=== PATIENT | male | born 1945 | race Caucasian/White ===

== ENCOUNTER → 2018-10-05 | Emergency (ER) | payer MEDICARE ==
[~2018-10-05] VITALS: Ht 170.2 cm; Wt 72.6 kg
[~2018-10-05] MED LIST: AMLODIPINE BESY10 MG PO; ENALAPRIL MALEA10 MG PO
--- NOTE | 2018-10-07 19:12 | EKG ---
[facility] [address] [facility] [place], [place] [address] Signed Sinus rhythm with 1st degree AV block Septal infarct (cited on or before 27-OCT-2016) Abnormal ECG When compared with ECG of 27-OCT-2016 15:29, [place] interval has increased Confirmed by VIRGINIA SHELTON MD ([id number]) on 10/07/2018 7:11:42 PM Electronically Signed By: VIRGINIA SHELTON MD 10/07/181911 PATIENT NAME: ARNALDO STALEY Electrocardiogram DATE OF : 45 PHYSICIAN: VIRGINIA SHELTON MD REPORT #: [id number] REPORT IS CONFIDENTIAL AND NOT TO BE RELEASED WITHOUT AUTHORIZATION
== END ==
LOC: ED 10:29
DX: I66.9 Occlusion and stenosis of unspecified cerebral artery (principal); I10 Essential (primary) hypertension; Z79.899 Other long term (current) drug therapy
CPT/HCPCS: 70450; 70496; 70498; 71045; 80053; 84484; 85025; 85610; 85730; 93005; 93010; 99285-25; J1644; Q3014

== ENCOUNTER 2022-11-23 10:39 | Emergency (ER) | payer MEDICARE ==
[~2022-11-23] VITALS: Ht 170.2 cm; Wt 73.1 kg
--- OUTSIDE RECORDS SUMMARY | ~2022-11-23 | XMS | Continuity of Care Document ---
Demographics + + + | Address | [facility] [address] | | | [place] [address] | + + + | Preferred Language | Unknown | + + + | Marital Status | Never | + + + | Jehovah'S Witness Affiliation | Unknown | + + + | Race | White | + + + | Ethnic Group | Not or | + + + Author + + + | Author | [facility] | + + + | Organization | [facility] | + + + | Address | [address] | | | [place] [address] | + + + | Phone | | + + + Care Team Providers + + + + | Care Cut File Clerk Name | Role | Phone | + + + + Unavailable | Unavailable | + + + + Unavailable | Unavailable | + + + + Unavailable | Unavailable | + + + + Unavailable | Unavailable | + + + + Allergies and Intolerances + + + + + + | date | description | facility | reaction | severity | + + + + + + | (no date) | No Known | [facility] | (no reaction) | (no severity) | | | Allergies | | | | + + + + + + Encounters No information. Functional Status No information. Immunizations No information. Medications + + + + | date | description | facility | + + + + | 2022-11-01 00:00 | POTASSIUM CHLORIDE | [facility] | + + + + | 2022-11-01 00:00 | AMLODIPINE BESYLATE | [facility] | + + + + | 2022-11-02 00:00 | AMLODIPINE BESYLATE | [facility] | + + + + | 2022-11-01 00:00 | ENALAPRIL MALEATE | [facility] | + + + + | 2022-11-02 00:00 | ENALAPRIL MALEATE | [facility] | + + + + | 2022-11-01 00:00 | TAMSULOSIN HCL | [facility] | + + + + Problems + + + + | date | description | facility | + + + + | 2016-10-27 00:00 | Palpitations | [facility] | + + + + | 2016-10-27 00:00 | Palpitations | [facility] | + + + + | 2016-10-27 00:00 | Weakness | [facility] | + + + + | 2016-10-27 00:00 | Weakness | [facility] | + + + + | 2016-10-27 00:00 | Fatigue | [facility] | + + + + | 2016-10-27 00:00 | Fatigue | [facility] | + + + + | 2018-10-05 00:00 | 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[facility] | | | thrombosis | | + + + + | 2018-10-05 00:00 | 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[facility] | | | thrombosis | | + + + + | 2022-06-27 18:35 | HYDROCELE, UNSPECIFIED | [facility] | + + + + | 2022-06-27 18:35 | CYST OF EPIDIDYMIS | [facility] | + + + + | 2022-06-27 18:35 | 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 | | + + + + | 2022-10-31 00:00 | Bladder outlet obstruction | [facility] | | | | | + + + + | 2022-10-31 00:00 | Bladder outlet obstruction | [facility] | | | | | + + + + | 2022-10-31 13:05 | HYPOKALEMIA | [facility] | + + + + | 2022-10-31 13:05 | UNSPECIFIED HYDRONEPHROSIS | [facility] | | | | | + + + + | 2022-10-31 13:05 | OTHER OBSTRUCTIVE AND | [facility] | | | REFLUX UROPATHY | | + + + + | 2022-10-31 13:05 | ACUTE KIDNEY FAILURE, | [facility] | | | UNSPECIFIED | | + + + + | 2022-10-31 13:05 | BENIGN PROSTATIC | [facility] | | | 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 | | + + + + | 2022-10-31 13:05 | TOBACCO USE | [facility] | + + + + | 2022-11-02 00:00 | Problem with [place] | [facility] | | | catheter | | + + + + | 2022-11-02 10:23 | NICOTINE DEPENDENCE, | [facility] | | | UNSPECIFIED, UNCOMPLICATED | | + + + + | 2022-11-02 10:23 | Essential (primary) | [facility] | | | hypertension | | + + + + | 2022-11-02 10:23 | OBSTRUCTIVE AND REFLUX | [facility] | | | UROPATHY, UNSPECIFIED | | + + + + | 2022-11-02 10:23 | ENCOUNTER FOR FITTING AND | [facility] | | | ADJUSTMENT OF URINARY | | | | DEVICE | | + + + + | 2022-11-02 10:23 | 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 Results/Labs +--------+--------+ +---------+--------+---------+ | test | date | facility | value | unit | notes | +--------+--------+ +---------+--------+---------+ + + | Result panel 1 | + + + + + + + + + | | 2022-10-31 | [facility] | YELLOW | (missing) | (missing) | | (unavailable | [facility] | | | | + + + + + + + + + | Result panel 2 | + + + + + +---------+ + + | | 2022-10-31 | [facility] | CLEAR | (missing) | (missing) | | (unavailable | [facility] Hospital | | | | + + + +---------+ + + + + | Result panel 3 | + + + + + + + + + | | 2022-10-31 | [facility] | NEGATIVE | (missing) | (missing) | | (unavailable | [facility] Hospital | | | | + + + + + + + + + | Result panel 4 | + + + + + + + + + | | 2022-10-31 | [facility] | NEGATIVE | (missing) | (missing) | | (unavailable | [facility] Hospital | | | | + + + + + + + + + | Result panel 5 | + + + + + + + + + | | 2022-10-31 | [facility] | NEGATIVE | (missing) | (missing) | | (unavailable | [facility] Hospital | | | | + + + + + + + + + | Result panel 6 | + + + + + +---------+ + + | | 2022-10-31 | [facility] | 1.025 | (missing) | (missing) | | (unavailable | [facility] Hospital | | | | + + + +---------+ + + + + | Result panel 7 | + + + + + + + + + | | 2022-10-31 | [facility] | MODERATE | (missing) | (missing) | | (unavailable | [facility] Hospital | | | | + + + + + + + + + | Result panel 8 | + + + + + +-------+ + + | | 2022-10-31 | [facility] | 5.5 | (missing) | (missing) | | (unavailable | [facility] Hospital | | | | + + + +-------+ + + + + | Result panel 9 | + + + + + + + + + | | 2022-10-31 | [facility] | NEGATIVE | (missing) | (missing) | | (unavailable | [facility] | | | | + + + + + + + + + | Result panel 10 | + + + + + + + + + | | 2022-10-31 | [facility] | NORMAL | (missing) | (missing) | | (unavailable | [facility] | | Hospital | | | | + + + + + + + + + | Result panel 11 | + + + + + + + + + | | 2022-10-31 | [facility] | NEGATIVE | (missing) | (missing) | | (unavailable | [facility] Hospital | | | | + + + + + + + + + | Result panel 12 | + + + + + + + + + | | 2022-10-31 | [facility] | NEGATIVE | (missing) | (missing) | | (unavailable | [facility] Hospital | | | | + + + + + + + + + | Result panel 13 | + + + + + +-------+ + + | | 2022-10-31 | [facility] | 4-6 | (missing) | (missing) | | (unavailable | [facility] Hospital | | | | + + + +-------+ + + + + | Result panel 14 | + + + + + +-------+ + + | | 2022-10-31 | [facility] | 4-6 | (missing) | (missing) | | (unavailable | [facility] Hospital | | | | + + + +-------+ + + + + | Result panel 15 | + + + + + + + + + | | 2022-10-31 | [facility] | NONE SEEN | (missing) | (missing) | | (unavailable | [facility] Hospital | | | | + + + + + + + + + | Result panel 16 | + + + + + + + + + | | 2022-10-31 | [facility] | NONE SEEN | (missing) | (missing) | | (unavailable | [facility] Hospital | | | | + + + + + + + + + | Result panel 17 | + + + + + +--------+ + + | | 2022-10-31 | [facility] | RARE | (missing) | (missing) | | (unavailable | [facility] Hospital | | | | + + + +--------+ + + + + | Result panel 18 | + + + + + + + + + | | 2022-10-31 | [facility] | HYALINE 2+ | (missing) | (missing) | | (unavailable | [facility] Hospital | | | | + + + + + + + + + | Result panel 19 | + + + + + +------+ + + | | 2022-10-31 | [facility] | No | (missing) | (missing) | | (unavailable | [facility] Hospital | | | | + + + +------+ + + + + | Result panel 20 | + + + + + +-------+ + + | | 2022-11-01 | [facility] | 6.9 | (missing) | (missing) | | (unavailable | [facility]14[facility] Hospital | | | | + + + +-------+ + + + + | Result panel 21 | + + + + + +--------+ + + | | 2022-11-01 | [facility] | 68.5 | (missing) | (missing) | | (unavailable | [facility]14[facility] Hospital | | | | + + + +--------+ + + + + | Result panel 22 | + + + + + +-------+---------+ + | | 2022-11-01 | [facility] | 4.3 | mg/dL | (missing) | | (unavailable | [facility]14[facility] Hospital | | | | + + + +-------+---------+ + + + | Result panel 23 | + + + + + +-------+---------+ + | | 2022-11-01 | [facility] | 2.4 | mg/dL | (missing) | | (unavailable | [facility]14[facility] Hospital | | | | + + + +-------+---------+ + + + | Result panel 24 | + + + + + +-------+ + + | | 2022-11-01 | [facility] | 5.3 | (missing) | (missing) | | (unavailable | [facility]14[facility] Hospital | | | | + + + +-------+ + + + + | Result panel 25 | + + + + + +-------+ + + | | 2022-11-01 | [facility] | 2.7 | (missing) | (missing) | | (unavailable | [facility]14[facility] Hospital | | | | + + + +-------+ + + + + | Result panel 26 | + + + + + +-------+ + + | | 2022-11-01 | [facility] | 2.6 | (missing) | (missing) | | (unavailable | [facility]14[facility] Hospital | | | | + + + +-------+ + + + + | Result panel 27 | + + + + + +--------+ + + | | 2022-11-01 | [facility] | 1.04 | (missing) | (missing) | | (unavailable | [facility]14[facility] Hospital | | | | + + + +--------+ + + + + | Result panel 28 | + + + + + +-------+ + + | | 2022-11-01 | [facility] | 0.9 | (missing) | (missing) | | (unavailable | [facility]14[facility] Hospital | | | | + + + +-------+ + + + + | Result panel 29 | + + + + + +------+ + + | | 2022-11-01 | [facility] | 15 | (missing) | (missing) | | (unavailable | [facility]14:07 [facility] Hospital | | | | + + + +------+ + + + + | Result panel 30 | + + + + + +------+ + + | | 2022-11-01 | [facility] | 16 | (missing) | (missing) | | (unavailable | [facility]14:07 [facility] Hospital | | | | + + + +------+ + + + + | Result panel 31 | + + + + + +------+ + + | | 2022-11-01 | [facility] | 68 | (missing) | (missing) | | (unavailable | [facility]14:07 [facility] Hospital | | | | + + + +------+ + + + + | Result panel 32 | + + + + + +--------+ + + | | 2022-11-01 | [facility] | 15.8 | (missing) | (missing) | | (unavailable | [facility]14[facility]07 [facility] Hospital | | | | + + + +--------+ + + + + | Result panel 33 | + + + + + +-------+ + + | | 2022-11-01 | [facility] | 8.6 | (missing) | (missing) | | (unavailable | [facility]14[facility] | | | | + + + +-------+ + + + + | Result panel 34 | + + + + + +-------+ + + | | 2022-11-01 | [facility] | 6.5 | (missing) | (missing) | | (unavailable | [facility]14[facility] Hospital | | | | + + + +-------+ + + + + | Result panel 35 | + + + + + +-------+ + + | | 2022-11-01 | [facility] | 0.6 | (missing) | (missing) | | (unavailable | [facility]14[facility] Hospital | | | | + + + +-------+ + + + + | Result panel 36 | + + + + + +------+---------+ + | | 2022-11-01 | [facility] | 99 | mg/dL | (missing) | | (unavailable | [facility]14:07 [facility] | | | | + + + +------+---------+ + + + | Result panel 37 | + + + + + +------+---------+ + | | 2022-11-01 | [facility] | 76 | mg/dL | (missing) | | (unavailable | [facility]14:07 [facility] Hospital | | | | + + + +------+---------+ + + + | Result panel 38 | + + + + + +--------+---------+ + | | 2022-11-01 | [facility] | 2.82 | mg/dL | (missing) | | (unavailable | [facility]14[facility]07 [facility] | | | | + + + +--------+---------+ + + + | Result panel 39 | + + + + + +------+ + + | | 2022-11-01 | [facility] | 22 | (missing) | (missing) | | (unavailable | [facility]14[facility]07 [facility] | | | | + + + +------+ + + + + | Result panel 40 | + + + + + +---------+ + + | | 2022-11-01 | [facility] | 26.95 | (missing) | (missing) | | (unavailable | [facility]14[facility]07 [facility] | | | | + + + +---------+ + + + + | Result panel 41 | + + + + + +--------+ + + | | 2022-11-01 | [facility] | 3.77 | (missing) | (missing) | | (unavailable | [facility]14[facility] | | | | + + + +--------+ + + + + | Result panel 42 | + + + + + +-------+ + + | | 2022-11-01 | [facility] | 133 | (missing) | (missing) | | (unavailable | [facility]14[facility]07 [facility] | | | | + + + +-------+ + + + + | Result panel 43 | + + + + + +-------+ + + | | 2022-11-01 | [facility] | 2.9 | (missing) | (missing) | | (unavailable | [facility]14[facility]07 [facility] | | | | + + + +-------+ + + + + | Result panel 44 | + + + + + +------+ + + | | 2022-11-01 | [facility] | 99 | (missing) | (missing) | | (unavailable | [facility]14[facility]07 [facility] | | | | + + + +------+ + + + + | Result panel 45 | + + + + + +------+ + + | | 2022-11-01 | [facility] | 25 | (missing) | (missing) | | (unavailable | [facility]14[facility]07 [facility] Hospital | | | | + + + +------+ + + + + | Result panel 46 | + + + + + +--------+ + + | | 2022-11-01 | [facility] | 11.9 | (missing) | (missing) | | (unavailable | [facility]14[facility] Hospital | | | | + + + +--------+ + + + + | Result panel 47 | + + + + + +-------+---------+ + | | 2022-11-01 | [facility] | 8.0 | mg/dL | (missing) | | (unavailable | [facility]14[facility]07 [facility] | | | | + + + +-------+---------+ + + + | Result panel 48 | + + + + + +-------+---------+ + | | 2022-11-01 | [facility] | 4.3 | mg/dL | (missing) | | (unavailable | [facility]14[facility] | | | | + + + +-------+---------+ + + + | Result panel 49 | + + + + + +-------+---------+ + | | 2022-11-01 | [facility] | 2.4 | mg/dL | (missing) | | (unavailable | [facility]14[facility] Hospital | | | | + + + +-------+---------+ + + + | Result panel 50 | + + + + + +-------+ + + | | 2022-11-01 | [facility] | 5.3 | (missing) | (missing) | | (unavailable | [facility]14[facility] Hospital | | | | + + + +-------+ + + + + | Result panel 51 | + + + + + +-------+ + + | | 2022-11-01 | [facility] | 2.7 | (missing) | (missing) | | (unavailable | [facility]14[facility] | | | | + + + +-------+ + + + + | Result panel 52 | + + + + + +--------+ + + | | 2022-11-01 | [facility] | 12.2 | (missing) | (missing) | | (unavailable | [facility]14[facility] | | | | + + + +--------+ + + + + | Result panel 53 | + + + + + +-------+ + + | | 2022-11-01 | [facility] | 2.6 | (missing) | (missing) | | (unavailable | [facility]14[facility] | | | | + + + +-------+ + + + + | Result panel 54 | + + + + + +--------+ + + | | 2022-11-01 | [facility] | 1.04 | (missing) | (missing) | | (unavailable | [facility]14[facility] | | | | + + + +--------+ + + + + | Result panel 55 | + + + + + +-------+ + + | | 2022-11-01 | [facility] | 0.9 | (missing) | (missing) | | (unavailable | [facility]14[facility] | | | | + + + +-------+ + + + + | Result panel 56 | + + + + + +------+ + + | | 2022-11-01 | [facility] | 15 | (missing) | (missing) | | (unavailable | [facility]14[facility] | | | | + + + +------+ + + + + | Result panel 57 | + + + + + +------+ + + | | 2022-11-01 | [facility] | 16 | (missing) | (missing) | | (unavailable | [facility]14:07 [facility] Hospital | | | | + + + +------+ + + + + | Result panel 58 | + + + + + +------+ + + | | 2022-11-01 | [facility] | 68 | (missing) | (missing) | | (unavailable | [facility]14:07 [facility] | | | | + + + +------+ + + + + | Result panel 59 | + + + + + +--------+ + + | | 2022-11-01 | [facility] | 34.6 | (missing) | (missing) | | (unavailable | [facility]14[facility]07 [facility] | | | | + + + +--------+ + + + + | Result panel 60 | + + + + + +--------+ + + | | 2022-11-01 | [facility] | 91.8 | (missing) | (missing) | | (unavailable | 05[facility]14:07 [facility] Hospital | | | | + + + +--------+ + + + + | Result panel 61 | + + + + + +--------+ + + | | 2022-11-01 | [facility] | 32.3 | (missing) | (missing) | | (unavailable | 05[facility]14:07 [facility] Hospital | | | | + + + +--------+ + + + + | Result panel 62 | + + + + + +--------+ + + | | 2022-11-01 | [facility] | 35.2 | (missing) | (missing) | | (unavailable | 05[facility]14:07 [facility] | | | | + + + +--------+ + + + + | Result panel 63 | + + + + + +-------+ + + | | 2022-11-01 | [facility] | 6.9 | (missing) | (missing) | | (unavailable | 05[facility]14:07 [facility] | | | | + + + +-------+ + + + + | Result panel 64 | + + + + + +--------+ + + | | 2022-11-01 | [facility] | 3.77 | (missing) | (missing) | | (unavailable | 05[facility]14:07 [facility] Hospital | | | | + + + +--------+ + + + + | Result panel 65 | + + + + + +--------+ + + | | 2022-11-01 | [facility] | 12.2 | (missing) | (missing) | | (unavailable | [facility]14[facility]07 [facility] Hospital | | | | + + + +--------+ + + + + | Result panel 66 | + + + + + +--------+ + + | | 2022-11-01 | [facility] | 34.6 | (missing) | (missing) | | (unavailable | [facility]14[facility]07 [facility] | | | | + + + +--------+ + + + + | Result panel 67 | + + + + + +--------+ + + | | 2022-11-01 | [facility] | 91.8 | (missing) | (missing) | | (unavailable | 05[facility]14:07 [facility] | Hospital | | | | + + + +--------+ + + + + | Result panel 68 | + + + + + +--------+ + + | | 2022-11-01 | [facility] | 13.9 | (missing) | (missing) | | (unavailable | 05[facility]14:07 [facility] Hospital | | | | + + + +--------+ + + + + | Result panel 69 | + + + + + +--------+ + + | | 2022-11-01 | [facility] | 32.3 | (missing) | (missing) | | (unavailable | 05[facility]14:07 [facility] | | | | + + + +--------+ + + + + | Result panel 70 | + + + + + +--------+ + + | | 2022-11-01 | [facility] | 35.2 | (missing) | (missing) | | (unavailable | 05[facility]14:07 [facility] Hospital | | | | + + + +--------+ + + + + | Result panel 71 | + + + + + +--------+ + + | | 2022-11-01 | [facility] | 13.9 | (missing) | (missing) | | (unavailable | 05[facility]14:07 [facility] | | | | + + + +--------+ + + + + | Result panel 72 | + + + + + +-------+ + + | | 2022-11-01 | [facility] | 179 | (missing) | (missing) | | (unavailable | 05[facility]14:07 [facility] Hospital | | | | + + + +-------+ + + + + | Result panel 73 | + + + + + +--------+ + + | | 2022-11-01 | [facility] | 68.5 | (missing) | (missing) | | (unavailable | 05[facility]14:07 [facility] | | | | + + + +--------+ + + + + | Result panel 74 | + + + + + +--------+ + + | | 2022-11-01 | [facility] | 15.8 | (missing) | (missing) | | (unavailable | 05[facility]14:07 [facility] Hospital | | | | + + + +--------+ + + + + | Result panel 75 | + + + + + +-------+ + + | | 2022-11-01 | [facility] | 8.6 | (missing) | (missing) | | (unavailable | 05[facility]14:07 [facility] Hospital | | | | + + + +-------+ + + + + | Result panel 76 | + + + + + +-------+ + + | | 2022-11-01 | [facility] | 6.5 | (missing) | (missing) | | (unavailable | 05[facility]14:07 [facility] | | | | + + + +-------+ + + + + | Result panel 77 | + + + + + +-------+ + + | | 2022-11-01 | [facility] | 0.6 | (missing) | (missing) | | (unavailable | :: | [facility] | | | | | ) | | Hospital | | | | + + + +-------+ + + + + | Result panel 78 | + + + + + +------+---------+ + | | 2022-11-01 | [facility] | 99 | mg/dL | (missing) | | (unavailable | 05:14: | [facility] | | Hospital | | | | + + + +------+---------+ + + + | Result panel 79 | + + + + + +-------+ + + | | 2022-11-01 | [facility] | 179 | (missing) | (missing) | | (unavailable | 05[facility]14:07 | [facility] | | Hospital | | | | + + + +-------+ + + + + | Result panel 80 | + + + + + +------+---------+ + | | 2022-11-01 | [facility] | 76 | mg/dL | (missing) | | (unavailable | 05[facility]14:07 | [facility] | | Hospital | | | | + + + +------+---------+ + + + | Result panel 81 | + + + + + +--------+---------+ + | | 2022-11-01 | [facility] | 2.82 | mg/dL | (missing) | | (unavailable | 05[facility]14:07 | [facility] Hospital | | | | + + + +--------+---------+ + + + | Result panel 82 | + + + + + +------+ + + | | 2022-11-01 | [facility] | 22 | (missing) | (missing) | | (unavailable | 05[facility]14:07 [facility] Hospital | | | | + + + +------+ + + + + | Result panel 83 | + + + + + +---------+ + + | | 2022-11-01 | [facility] | 26.95 | (missing) | (missing) | | (unavailable | 05[facility]14:07 [facility] Hospital | | | | + + + +---------+ + + + + | Result panel 84 | + + + + + +-------+ + + | | 2022-11-01 | [facility] | 133 | (missing) | (missing) | | (unavailable | 05[facility]14:07 | [facility] | | Hospital | | | | + + + +-------+ + + + + | Result panel 85 | + + + + + +-------+ + + | | 2022-11-01 | [facility] | 2.9 | (missing) | (missing) | | (unavailable | 05[facility]14:07 [facility] | Hospital | | | | + + + +-------+ + + + + | Result panel 86 | + + + + + +------+ + + | | 2022-11-01 | [facility] | 99 | (missing) | (missing) | | (unavailable | 05[facility]14:07 [facility] Hospital | | | | + + + +------+ + + + + | Result panel 87 | + + + + + +------+ + + | | 2022-11-01 | [facility] | 25 | (missing) | (missing) | | (unavailable | 05[facility]14:07 [facility] | | Hospital | | | | + + + +------+ + + + + | Result panel 88 | + + + + + +--------+ + + | | 2022-11-01 | [facility] | 11.9 | (missing) | (missing) | | (unavailable | 05[facility]14:07 [facility] | Hospital | | | | + + + +--------+ + + + + | Result panel 89 | + + + + + +-------+---------+ + | | 2022-11-01 | [facility] | 8.0 | mg/dL | (missing) | | (unavailable | 05:14:07 | [facility] | | Hospital | | | | + + + +-------+---------+ + + + | Result panel 90 | + + + + + + + + + | | 2022-11-02 | [facility] | YELLOW | (missing) | (missing) | | (unavailable | 11:58:07 | [facility] | | Hospital | | | | + + + + + + + + + | Result panel 91 | + + + + + +---------+ + + | | 2022-11-02 | [facility] | CLEAR | (missing) | (missing) | | (unavailable | 11:58:07 | [facility] | [facility] | ) | | Hospital | | | | + + + +---------+ + + + + | Result panel 92 | + + + + + + + + + | | 2022-11-02 | [facility] | NEGATIVE | (missing) | (missing) | | (unavailable | 11:58:07 | [facility] | | Hospital | | | | + + + + + + + + + | Result panel 93 | + + + + + + + + + | | 2022-11-02 | [facility] | NEGATIVE | (missing) | (missing) | | (unavailable | 11:58:07 | [facility] | | Hospital | | | | + + + + + + + + + | Result panel 94 | + + + + + + + + + | | 2022-11-02 | [facility] | NEGATIVE | (missing) | (missing) | | (unavailable | 11:58:07 | [facility] | | Hospital | | | | + + + + + + + + + | Result panel 95 | + + + + + +---------+ + + | | 2022-11-02 | [facility] | 1.025 | (missing) | (missing) | | (unavailable | 11:58:07 | [facility] | | Hospital | | | | + + + +---------+ + + + + | Result panel 96 | + + + + + +---------+ + + | | 2022-11-02 | [facility] | LARGE | (missing) | (missing) | | (unavailable | 11:58:07 | [facility] | | Hospital | | | | + + + +---------+ + + + + | Result panel 97 | + + + + + +-------+ + + | | 2022-11-02 | [facility] | 5.5 | (missing) | (missing) | | (unavailable | 11:58:07 | [facility] | | Hospital | | | | + + + +-------+ + + + + | Result panel 98 | + + + + + +-------+ + + | | 2022-11-02 | [facility] | 100 | (missing) | (missing) | | (unavailable | 11:58:07 | [facility] ) | | Hospital | | | | + + + +-------+ + + + + | Result panel 99 | + + + + + + + + + | | 2022-11-02 | [facility] | NORMAL | (missing) | (missing) | | (unavailable | 11:58:07 | [facility] ) | | Hospital | | | | + + + + + + + + + | Result panel 100 | + + + + + + + + + | | 2022-11-02 | [facility] | NEGATIVE | (missing) | (missing) | | (unavailable | 11:58:07 | [facility] | | Hospital | | | | + + + + + + + + + | Result panel 101 | + + + + + +---------+ + + | | 2022-11-02 | [facility] | TRACE | (missing) | (missing) | | (unavailable | 11:58:07 | [facility] | | Hospital | | | | + + + +---------+ + + + + | Result panel 102 | + + + + + +---------+ + + | | 2022-11-02 | [facility] | 21-40 | (missing) | (missing) | | (unavailable | 11:58:07 | [facility] | | ) | | Hospital | | | | + + + +---------+ + + + + | Result panel 103 | + + + + + +-------+ + + | | 2022-11-02 | [facility] | 2-3 | (missing) | (missing) | | (unavailable | 11:58:07 | [facility] | ) | | Hospital | | | | + + + +-------+ + + + + | Result panel 104 | + + + + + + + + + | | 2022-11-02 | [facility] | SQUAMOUS 1+ | (missing) | (missing) | | (unavailable | 11:58:07 | [facility] | | Hospital | | | | + + + + + + + + + | Result panel 105 | + + + + + + + + + | | 2022-11-02 | [facility] | NONE SEEN | (missing) | (missing) | | (unavailable | 11:58:07 | [facility] ) | | Hospital | | | | + + + + + + + + + | Result panel 106 | + + + + + +--------+ + + | | 2022-11-02 | [facility] | RARE | (missing) | (missing) | | (unavailable | 11:58:07 | [facility] | | | | ) | | [facility] | | | | + + + +--------+ + + + + | Result panel 107 | + + + + + + + + + | | 2022-11-02 | [facility] | NONE SEEN | (missing) | (missing) | | (unavailable | 11:58:07 | [facility] | | | | | ) | | Hospital | | | | + + + + + + + + + | Result panel 108 | + + + + + +------+ + + | | 2022-11-02 | [facility] | No | (missing) | (missing) | | (unavailable | 11:58:07 | [facility] | | | | | ) | | Hospital | | | | + + + +------+ + + + + | Result panel 109 | + + + + + + + + + | | 2022-11-02 | [facility] | CLEAN CATCH | (missing) | (missing) | | (unavailable | 11:58:07 | [facility] | | | | | ) | | Hospital | | | | + + + + + + + Social History No information. Vital Signs + + + +---------+ | date | measurement | value | units | + + + +---------+ | 2022-10-31 00:00 | BMI | 25.4 | kg/m2 | + + + +---------+ | 2022-10-31 00:00 | height_metric | 170.18 | cm | + + + +---------+ | 2022-10-31 00:00 | height_standard | 67 | in | + + + +---------+ | 2022-10-31 00:00 | weight_metric | 73.6 | kg | + + + +---------+ | 2022-10-31 00:00 | weight_standard | 162.26 | lb | + + + +---------+ | 2022-11-01 00:00 | BP_diastolic | 56 | mmHg | + + + +---------+ | 2022-11-01 00:00 | BP_systolic | 125 | mmHg | + + + +---------+ | 2022-11-01 00:00 | heart_rate | 78 | /min | + + + +---------+ | 2022-11-01 00:00 | o2_saturation | 96 | % | + + + +---------+ | 2022-11-01 00:00 | respiration_rate | 15 | /min | + + + +---------+ | 2022-11-01 00:00 | temperature_metric | 36.5 | C | | | | | | + + + +---------+ | 2022-11-01 00:00 | | 97.7 | F | | | temperature_standar | | | | | d | | | + + + +---------+ | 2022-11-02 00:00 | BMI | 25.9 | kg/m2 | + + + +---------+ | 2022-11-02 00:00 | BP_diastolic | 62 | mmHg | + + + +---------+ | 2022-11-02 00:00 | BP_systolic | 131 | mmHg | + + + +---------+ | 2022-11-02 00:00 | heart_rate | 76 | /min | + + + +---------+ | 2022-11-02 00:00 | height_metric | 170.18 | cm | + + + +---------+ | 2022-11-02 00:00 | height_standard | 67 | in | + + + +---------+ | 2022-11-02 00:00 | o2_saturation | 99 | % | + + + +---------+ | 2022-11-02 00:00 | respiration_rate | 16 | /min | + + + +---------+ | 2022-11-02 00:00 | temperature_metric | 36.67 | C | | | | | | + + + +---------+ | 2022-11-02 00:00 | | 98 | F | | | temperature_standar | | | | | d | | | + + + +---------+ | 2022-11-02 00:00 | weight_metric | 74.9 | kg | + + + +---------+ | 2022-11-02 00:00 | weight_standard | 165.13 | lb | + + + +---------+"
--- OUTSIDE RECORDS SUMMARY | ~2022-11-23 | XMS | Continuity of Care Document ---
Demographics + + + | Address | [facility] [address] | | | [place] [address] | + + + | Preferred Language | Unknown | + + + | Marital Status | Never | + + + | Nondenominational Affiliation | Unknown | + + + | Race | White | + + + | Ethnic Group | Not or | + + + Author + + + | Author | [facility] | + + + | Organization | [facility] | + + + | Address | [address] [facility] | | | [place] [address] | + + + | Phone | | + + + Care Team Providers + + + + | Care [place] Feeder Name | Role | Phone | + [...] | 2022-11-01 00:00 | POTASSIUM CHLORIDE | [facility] | + + + + | 2022-11-01 00:00 | AMLODIPINE BESYLATE | [facility] | + + + + | 2022-11-02 00:00 | AMLODIPINE BESYLATE | [facility] | + + + + | 2022-11-01 00:00 | ENALAPRIL MALEATE | [facility] | + + + + | 2022-11-02 00:00 | ENALAPRIL MALEATE | [facility] | + + + + | 2022-11-01 00:00 | TAMSULOSIN HCL | [facility] | + + + + Problems + + + + | date | description | facility | + + + + | 2016-10-27 00:00 | Palpitations | [facility] | + + + + | 2016-10-27 00:00 | Palpitations | [facility] | + + + + | 2016-10-27 00:00 | Weakness | [facility] | + + + + | 2016-10-27 00:00 | Weakness | [facility] | + + + + | 2016-10-27 00:00 | Fatigue | [facility] | + + + + | 2016-10-27 00:00 | Fatigue | [facility] | + + + + | 2018-10-05 00:00 | 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
[~2022-11-23 10:39] MED LIST changes: +FLOMAX0.4 MG PO; +MULTI VITAMIN1 EACH PO; +POTASSIUM CHLO20 ME1 PO
--- OUTSIDE RECORDS SUMMARY | 2022-11-23 10:47 | XMS ---
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 Amena has no Care Guidelines for this patient. [facility] VISIT COUNT (12 MO.) [address] [facility] TOTAL 3 NOTE: Visits indicate total known visits. ED/C VISIT TRACKING (12 MO.) 11/23/2022 10:39 [facility] [place] TYPE: Emergency COMPLAINT: - BLOOD IN CATHETER BAG 11/02/2022 10:23 [facility] [place] TYPE: Emergency COMPLAINT: - URINE PROBLEM DIAGNOSES: - Encounter for fitting and adjustment of urinary device - Essential (primary) hypertension - Nicotine dependence, unspecified, uncomplicated - Obstructive and reflux uropathy, unspecified - Other fpc (current) drug therapy 10/31/2022 13:04 [facility] [place] TYPE: Emergency COMPLAINT: - GENITALS SWOLLEN/PAINFUL INPATIENT VISIT TRACKING (12 MO.) 10/31/2022 13:05 [facility] [place] TYPE: Observation COMPLAINT: - BLADDER OUTLET OBSTRUCTION DIAGNOSES: - Acute kidney failure, unspecified - Benign prostatic hyperplasia with lower urinary tract symptoms - Hypokalemia - Other obstructive and reflux uropathy - Tobacco use - Unspecified hydronephrosis [email or web address]
[2022-11-23 12:47] VITALS: BP 133/76
== END 2022-11-23 13:15 | disposition home or self-care (01) ==
LOC: ED 10:39
DX: R31.9 Hematuria, unspecified (principal); I10 Essential (primary) hypertension; F17.200 Nicotine dependence, unspecified, uncomplicated; Z79.899 Other long term (current) drug therapy
CPT/HCPCS: 81001

== ENCOUNTER 2023-01-07 05:45 | Day surgery (SDC) | payer MEDICARE ==
[2023-01-03 13:44] VITALS: BP 128/78
[~2023-01-07] VITALS: Ht 170.2 cm; Wt 75.0 kg
[2023-01-07] VITALS (8 sets, daily range): BP systolic 110–134; BP diastolic 55–74
[~2023-01-07 05:45] MED LIST changes: +ASPIRIN REGIMEN81 MG PO; +ATORVASTATIN CA20 MG PO
--- NOTE | 2023-01-07 10:04 | NUR ---
01/07/23 1004 Joselyn Mata 0958-PT TO PACU IN SUPINE POSITION. PT RESPONDS TO LIGHT VERBAL STIMULI. BREATHING EASY AND UNLABORED. SPO2 >90% ON ROOM AIR. PT DENIES PAIN AND NAUSEA. 1004-PT REMAINS AWAKE BUT DROWSY. PT DENIES PAIN AND NAUSEA. BREATHING EASY AND UNLAOBRED. SPO2 >95% ON ROOM AIR. HOB ELEVATED PER PT REQUEST.
--- NOTE | 2023-01-07 10:24 | NUR ---
PT TO MED-SURG VIA BED, VISITOR IS HERE WITH HIM. PT IS ALERT AND INTERACTIVE AGREES HE IS COMFORTABLE. BLADDER IRRIGATION RUNNING CLEAR. SCD'S AND PULSE OX IN PLACE FRESH H20 PROVIDED
--- NOTE | 2023-01-07 10:25 | NUR ---
PT IN ROOM 120, ARRIVED FROM DAY SURGERY RECIEVED BY NICOLASA QUINTERO. REPORT RECEIVED FROM NICOLASA ZHENG FROM DAY SURGERY. PT IS ALERT AND ORIENTED UPON ARRIVAL WITH ONE VISITOR IN ROOM. CBI RUNNING. LR RUNNING AT 50 ML/HR VIA PUMP. VSS. PT DENIES PAIN OR DISCOMFORT AT THIS TIME.
[2023-01-07] MEDS ORDERED: TRAMADOL HCL50 MG PO (10:28)
[2023-01-07] MEDS ORDERED: LEVOFLOXACIN500 MG PO (10:29)
--- NOTE | 2023-01-07 11:07 | NUR ---
PHYSICAL ASSESSMENT COMPLETE. PT DENIES PAIN OR NAUSEA AT THIS TIME. RESTING IN BED WITH CALL LIGHT, VISITOR AT BEDSIDE. BED RAILS UP X3, PT INSTRUCTED TO USE CALL LIGHT AND NOT TO ATTEMPT TO GET OUT OF BED. PT ABLE TO WIGGLE FEET BUT NOT TOES, ANESTHESIA CURRENTLY AFFECTING BLE SENSATION. PT PERCEIVES SHARP PAIN AT DERMATOME L5, DULL PAIN BELOW THAT. LUNGS CLEAR, RESP EVEN AND UNLABORED. ERAZO CATHETER INTACT, SECURED TO LLE. CBI INFUSING, ERAZO OUTPUT IS CLEAR. NO REQUESTS AT THIS TIME.
--- NOTE | 2023-01-07 11:48 | NUR ---
PT RESTING IN BED, VSS. PT PERCEIVES SHARP SENTATION AT THE KNEE BILATERALLY NOW, DERMATOME L5. PT ABLE TO WIGGLE 1ST TOE OF THE LEFT FOOT NOW. PT DENIES PAIN OR NAUSEA. CBI RATE DECREASED. ERAZO OUTPUT IS CLEAR AT THIS TIME. ERAZO DRAINAGE BAG EMPTIED. NO REQUESTS AT THIS TIME.
--- NOTE | 2023-01-07 11:58 | NUR ---
SPOKE TO PATIENT ABOUT THE DISCHARGE PLAN.PATIENT PLANS TO GO HOME TOMORROW WHEN MEDICALLY STABLE.PATIENT HAS FRIENDS AND FAMILY THAT ARE AVAIABLE TO HELP.PATIENT'S DEMOGRAPHICS ARE CORRECT IN THE MEDICAL RECORD. PATIENT CAN AFFORD FOOD AND HOUSING. PATIENT CAN DO HIS OWN ADLS. PATIENT STILL DRIVES NEEDED. PATIENT DOES NOT HAVE ANY DME AT HOME. PATIENT HAS NO CASE MANAGEMENT NEEDS AT THIS TIME. THE UNIT CLERK WILL MONITOR THE PATIENTS NEEDS.
--- NOTE | 2023-01-07 12:54 | NUR ---
PT SITTING UP IN BED, ALERT AND AWAKE. DENIES PAIN OR NAUSEA. PT ABLE TO MOVED ALL TOES ON LEFT FOOT AND 1ST TOE ON RIGHT FOOT. IV INFUSING LR, DRESSING INTACT, NO REDNESS OR SWELLING NOTED. ERAZO DRAINING CLEAR YELLOW URINE, SMALL CLOT NOTED IN DRAINAGE TUBING. CBI INFUSING VIA GRAVITY. MEAL DELIVERED TO PT ROOM. PT EATING. CALL LIGHT IN REACH, NO REQUESTS AT THIS TIME.
--- NOTE | 2023-01-07 13:50 | NUR ---
PT SITTING UP IN BED WATCHING TV. MEAL COMPLETED. DENIES PAIN OR NAUSEA. IV CONTINUES TO INFUSE LR, SITE INTACT, NO REDNESS OR SWELLING NOTED. PT ORIENTED TO TIME AND LIMITATIONS AFTER SURGERY. CLEAR YELLOW URINE DRAINING FROM ERAZO, SMALL AMOUNT OF BLOOD NOTED IN TUBING. FRESH ICE WATER PROVIDED. PT ENCOURAGED TO USE CALL LIGHT, CALL LIGHT AND BELONGINGS IN REACH. BED RAILS UP X4.
--- NOTE | 2023-01-07 15:09 | NUR ---
PT SITTING UP IN BED, VSS. PT ABLE TO WIGGLE LEFT AND RIGHT TOES, ABLE TO LIFT EACH LEG. STRENGTH EQUAL BILATERALLY. SENSATION INTACT, BILATERALLY. IV INTACT, NO REDNESS OR SWELL, LR INFUSING. PT ORIENTED TO TIME AND SITUATION. PT DOES NOT REMEMBER COMING INTO TO SURGERY. PT REQUIRES SOME EXPLANATION AND CONVENCING THAT SURGERY TOOK PLACE. PT CONCERNED ABOUT HIS ANIMALS AND STATES HE NEEDS TO GO HOME. PT DOES NOT RECOGNIZE HIS OWN LIMITATIONS AT THIS TIME. PT PROVIDED CONTACT INFORMATION FOR ROBE, HIS FRIEND WHO IS PROVIDING HIM TRANSPORTATION. CALLED ROBE, DISCUSSED PT'S CONFUSION. ROBE STATES THAT THE PT GETS CONFUSED LIKE THIS WHEN HIS ROUTINE CHANGES OR WITH BIG EVENTS. ROBE STATES SHE WILL CALL THE PT'S CELL PHONE TO SPEAK WITH HIM AND REINFORCE ORIENTATION. ROBE REPORTS THAT THE PATIENT WANTS TO COME HOME AND ALSO WANTS TO SMOKE. ROBE REPORTS HAS A HISTORY OF "FORGETFULNESS". FOR EXAMPLE HE DROVE UP TO [place] BUT THEN COULDNT REMEMBER HOW HE GOT THERE. ALSO PATIENT HAS A HISTORY OF LEAVING [place]. ROBE STATED SHE HAS CONCERNS ABOUT HIM DISCHARGING HOMES HE LIVES ALONE. ROBE STATES SHE WILL BE INTO VISIT HIM YAIR AGUDELO [id number]. CATHETER DRAINING CLEAR, YELLOW URINE WITH SMALL AMOUNTS OF BLOOD IN THE TUBING
--- NOTE | 2023-01-07 15:46 | NUR ---
PT RESTING WITH EYES CLOSED IN BED, ROUSES TO NOISE. DENIES PAIN OR DISCOMFORT AT THIS TIME. PT STATES HE SPOKE WITH ROBE. STATES, "I GUESS I AM STAYING HERE." OFFERED NICOTINE PATCH IN PLACE OF SMOKING, PT DECLINES AT THIS TIME. NO REQUESTS AT THIS TIME. PT CLOSED TO NURSES STATION, CURRTAIN OPEN, BED RAILS UP X4. PT INSTRUCTED TO USE CALL LIGHT.
--- NOTE | 2023-01-07 16:01 | NUR ---
MED REC COMPLETE
--- NOTE | 2023-01-07 16:33 | NUR ---
LR INFUSION COMPLETE, NEW BAG HUNG, SEE eMAR. IV INTACT, NO PAIN, REDNESS OR SWELLING NOTED AT SITE. PT IS UP IN BED, PLEASANT AND WATCHING TV. ERAZO CONTINUES TO DRAIN CLEAR YELLOW URINE WITH SMALL AMOUNTS OF BLOOD IN THE TUBING. CALL LIGHT IN PLACE, NO REQUESTS AT THIS TIME.
--- NOTE | 2023-01-07 17:18 | NUR ---
1000 MLS OF PINK URINE REMOVED FROM ERAZO BAG. 1000 MLS OF NS IRRIGATION FLUID IN. NEW BAG STARTED. LR INFUSING VIA IV IN THE RFA, DRESSING INTACT, NO REDNESS OR SWELLING NOTED, NO TENDERNESS TO THE TOUCH. DINNER DELIVERED TO PT, PT SITS UP IN BED, EATS AND WATCHES TV, CALL LIGHT IN REACH, NO REQUESTS AT THIS TIME.
--- NOTE | 2023-01-07 18:55 | NUR ---
PT RESTS IN BED, NO FURTHER EPISODES OF CONFUSION OR REQUESTS TO GO HOME. PT IS PLEASENT. TOLERATING DIET WELL. IV SITE C/D/I, NO SWELLING OR REDNESS. CBI CONTINUES TO FLOW AT A SLOW RATE. ERAZO DRAINS PINK URINE. PT DENIES PAIN OR DISCOMFORT. BED IN LOW POSITION, RAILS UP X4, CALL LIGHT AND BELONGINGS IN REACH.
--- NOTE | 2023-01-07 19:09 | NUR ---
VERBAL REPORT PROVIDED TO NICOLASA ERAZO. QUESTIONS RICHELLE.
--- NOTE | 2023-01-07 19:23 | NUR ---
RECEIVED REPORT FROM DAY SHIFT RN. PATIENT IS RESTING IN BED. MD AT BEDSIDE. NO NEEDS NOTED. VERBAL ORDER FROM MD FOR STOOL SOFTENER, VERIFIED WITH REPEAT BACK METHOD
--- NOTE | 2023-01-07 20:32 | NUR ---
PATIENT REPOSITIONED IN BED. CATH CARE COMPLETED. NEW GOWN PLACED ON PATIENT. PATIENTS VITALS TAKEN AND RECORDED. CBA CLAMPED AT 2019. PATIENTS ERAZO EMPTIED. PATIENTS INTAKE AND OUTPUT RECORDED. PATIENT HAS SCDS IN PLACE ON BILAT LOW EXT. PATIENT DENIES ANY PAIN OR NAUSEA. PM MEDS GIVEN PER ORDER. IV INFUSING PER ORDER. DISCUSSED PLAN OF CARE WITH PATIENT AND ALL QUESTIONS ANSWERED. PATIENT PROVIDED WARM BLANKET AND FRESH WATER. PATIENT IS ON RA AND CPOX IS IN USE. PATIENT DENIES ANY NEEDS. CALL LIGHT IN REACH. BED ALARM ON FOR PATIENT SAFETY.
--- NOTE | 2023-01-07 21:46 | NUR ---
PATIENT CAN BE SEEN FROM RN STATION ATTEMPTING TO GET THIS RNS ATTENTION. PATIENT IS REQUESTING ERAZO BE TAKEN OUT. EDUCATED PATIENT ON PLAN OF CARE. PATIENT APPEARS FRUSTRATED. PATIENT REASSURED BY THIS RN THAT HE IS SAFE AND THE DRS ORDERS ARE BEING FOLLOWED. ALL QUESTIONS ANSWERED ABOUT PATIENTS PLAB OF CARE. PATIENT APPEARS CALM. PATIENT REQUESTING LIGHTS OFF. ALL LIGHTS TURNED OFF PER PATIENT REQUEST. PATIENTS FOLWY REMAINS CLAMPED. PATIENTS BED ALARM ON FOR SAFETY. CALL LIGHT IN REACH. IV INFUSING PER ORDER.
--- NOTE | 2023-01-07 22:13 | NUR ---
PATIENT IS RESTING IN BED WITH EYES CLOSED, CPOX READINGS ARE WNL. CALL LIGHT IN REACH. BED ALARM ON FOR SAFETY.
--- NOTE | 2023-01-07 22:51 | NUR ---
THIS RN IN TO CHECK ON PATIENT. PATIENT STATED "I NEED TO SHULTZ THIS CHECK AND I CANT FIND IT". THIS RN ATTEMPTED TO ORIENT PATIENT. PATIENT DENIES ANY NEEDS. CALL LIGHT IN REACH. BED ALARM ON FOR SAFETY.
--- NOTE | 2023-01-08 00:09 | NUR ---
PATIENT IS RESTING IN BED WITH EYES CLOSED, CPOX READINGS ARE WNL. CALL LIGHT IN REACH. BED ALARM ON FOR SAFETY.
[2023-01-08 01:28] VITALS: BP 124/57
--- NOTE | 2023-01-08 02:05 | NUR ---
PATIENTS VITALS TAKEN AND RECORDED. ERAZO EMPTIED. CBI REMAINS CLAMPED. INTAKE AND OUTPUT RECORDED. PATIENT IS REQUESTING TO LEAVE. PATIENT EDUCATED THAT IT IS THE MIDDLE OF THE NIGHT. PATIENT STATED "OKAY". PATIENT DENIES ANY FURTHER NEEDS. CALL LIGHT IN REACH. BED ALARM ON FOR SAFETY. IV INFUSING PER ORDER.
--- NOTE | 2023-01-08 03:55 | NUR ---
PATIENT IS RESTING IN BED WITH EYES CLOSED, CPOX READINGS ARE WNL. CBI REMAINS CLAMPED. IV INFUSING PER ORDER. CALL LIGHT IN REACH. BED ALARM ON FOR SAFETY.
--- NOTE | 2023-01-08 04:26 | NUR ---
PATIENTS BED ALARM ALERTED STAFF. PATIENT TRYING TO CLIMB OUT OF BED. ASSISTED PATIENT TO CLIMB BACK IN BED. PATIENT IS CONFUSED AND DISORIENTED. PATIENT STATED "I HAVE TO GET TO [facility]" THIS RN ATTEMPTED TO ORIENT PATIENT. EDUCATED PATIENT ON PLAN OF CARE AND DISCHARGE TIME. PATIENT EDUCATED THAT IT IS 4 AM. PATIENT THEN STATED "THIS PLACE IS JAIL". REASSURED PATIENT THAT HE IS SAFE AND HE WILL BE GOING HOME TODAY. PATIENT APPEARED TO CALM DOWN. PATIENT DEMANDED HIS CELLPHONE. PATIENT THEN MADE A PERSONAL CALL. THIS RN LEFT ROOM. PATIENT IS RESTING IN BED. IV INFUSING PER ORDER. BED ALARM ON FOR SAFETY. CPOX AND SCDS DC'D PATIENT WAS FRUSTRATED WITH ALL THE LINE AND TUBES.
[2023-01-08 05:27] VITALS: BP 125/68
--- NOTE | 2023-01-08 05:28 | NUR ---
LAB IN ROOM. VITALS TAKEN AND RECORDED. ERAZO EMPTIED. ERAZO DRAINING YELLOW URINE. INTAKE AND OUTPUT RECORDED. IV INFUSING PER ORDER. PATIENT DENIES ANY NEEDS. PATIENT STATED "WHEN DO I GET OUT OF HERE". UPDATED PATIENT ON PLAN OF CARE AND ALL QUESTIONS ANSWERED. NO FURTHER NEEDS NOTED. CALL LIGHT IN REACH. BED ALARM ON FOR SAFETY.
[2023-01-08 05:41] LABS: ANION GAP 10.8 (7-21); BUN/CREATININE RATIO 13.82 (6.0-28.6); CALCIUM 8.8 mg/dL (8.5-10.1); CREATININE, SERUM 0.94 mg/dL (0.70-1.30); POTASSIUM 3.8 mmol/L (3.5-5.1)
--- NOTE | 2023-01-08 06:16 | NUR ---
PATIENT IS RESTING IN BED WITH EYES CLSOED, RR 16. CALL LIGHT IN REACH. BED ALARM ON FOR SAFETY. IV INFUSING PER ORDER.
--- NOTE | 2023-01-08 07:17 | NUR ---
RECEIVED REPORT FROM SERVICE CENTER SPECIALIST RN. ROUNDED ON PATIENT. PT IS SLEEPING IN BED WITH EYES CLOSED. RESPIRATIONS ARE EVEN AND REGULAR. CALL LIGHT WITHIN REACH AND BED ALARM ON.
--- NOTE | 2023-01-08 07:54 | NUR ---
RECEIVED REPORT FROM TO [facility]. ASSUMING CARE OF PT.
--- NOTE | 2023-01-08 08:15 | NUR ---
HANDOFF REPORT RECEIVED FROM NICOLASA BARRERA.
[2023-01-08 08:25] VITALS: BP 147/70
--- NOTE | 2023-01-08 09:55 | NUR ---
PT IN BED WORKING ON BREAKFAST. EXPRESSED STRONG DESIRE TO GO HOME. GAVE ENCOURAGEMENT. PT CONSENTED TO PRAYER. PRAYED FOR CONTINUED HEALING AND ABIDING PEACE.
--- NOTE | 2023-01-09 18:05 | OR ---
[facility] [address] [place], [place] [address] Signed DATE OF OPERATION: 01/07/2023 SURGEON: Lincoln Smith MD PREOPERATIVE DIAGNOSES: 1. Urinary retention. 2. 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 POSTOPERATIVE DIAGNOSES: 1. Urinary retention. 2. 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 PROCEDURES: 1. Transurethral resection of prostate. 2. Urethral dilation using [place] sounds from 18-Burkinan to 28-Burkinan. ANESTHESIA: Spinal. ESTIMATED BLOOD LOSS: 100 mL. COMPLICATIONS: None. SPECIMENS: Prostate chips sent to the lab for pathologic evaluation. DRAINS: A 22-Burkinan three-way Hoover catheter, connected to continuous bladder irrigation. INDICATIONS FOR PROCEDURE: Mr. Staley is a very pleasant 77-year-old gentleman with a history of longstanding trilobar BPH with LUTS, who more recently began to experience bouts of urinary retention. Since that time, he has been managing his urinary retention with a chronic indwelling Hoover catheter. He underwent diagnostic cystoscopy, which did confirm the presence of an actively obstructing trilobar prostate. I explained to him that his best chance of being able to void on his own is removing that obstruction to make it easier for his bladder muscle to push urine out of his bladder. After discussion of the risks and benefits of the procedure, which included urinary incontinence and gross hematuria, Electronically Signed By: LINCOLN SMITH MD 01/09/23 [id number] PATIENT NAME: ARNALDO STALEY OPERATIVE REPORT DATE OF : 45 REPORT #: [id number] PHYSICIAN: LINCOLN SMITH MD PCP: COLE RPADO MD REPORT IS CONFIDENTIAL AND NOT TO BE RELEASED WITHOUT AUTHORIZATION [facility] [address] [place], [place] [address] Signed the patient has elected to proceed. OPERATIVE FINDINGS: 1. Digital rectal examination reveals a 65 g gland that is soft, smooth, and symmetric with no focal nodules. 2. The patient did have a significant median lobe on ureteroscopy, which had already been confirmed on prior cystoscopy. The very large median lobe was resected 1st followed by the left and then right lateral lobes of the prostate. The resection was performed down to the level of verumontanum as per protocol. Prior to resection, I evaluated both ureteral orifices and they were noted to be in their normal anatomic location. This was confirmed at the end of the procedure as well. At the end of the procedure, a 22-Burkinan three-way Hoover catheter was inserted into the patient's bladder over a Sensor wire. The catheter was then manually irrigated and the balloon was filled with 30 mL of water, this was then connected to continuous bladder irrigation. DESCRIPTION OF PROCEDURE: After informed consent was obtained, the patient was taken back to the operating room. [facility] table, where spinal anesthesia was induced. He was placed in the dorsal lithotomy position and his genitalia were prepped and draped in a standard sterile fashion. The patient's fossa navicularis was dilated from 18-Burkinan to 28-Burkinan using Lynch[place] sounds without difficulty. Inspection of the urethral meatus also did reveal early signs of urethral erosion due to the presence of a chronic indwelling catheter. After dilation of the fossa navicularis, 60 mL of sterile loop was then instilled in his urethra, followed by a 26-Burkinan sheath that was inserted using a visual obturator. The visual obturator was switched out for the resectoscope with a 23-Burkinan bipolar loop. I then visualized the bilateral ureteral orifices, which were noted to be out of the way of the median lobe. The median lobe was completely resected without issue. I then resected both the left lateral and right lateral lobes of the prostate down to the level of the verumontanum per protocol. I did not perform any resection distal to this due to the increased risk of iatrogenic incontinence. I irrigated the patient's bladder using a Katty syringe multiple times throughout the procedure to extract all of the prostate chips from the patient's bladder. Hemostasis was achieved and maintained using the bipolar loop. He was noted to bleed a little bit more than average, but this is likely due to his chronic daily aspirin use. Once I was satisfied that the entire prostatic urethra was resected, I did again evaluate the bilateral ureteral orifices were which were still present and they were anatomic location. All of the chips were extracted from the patient's bladder and the resectoscope was removed leaving the sheath behind. Through the sheath, I passed a 0.035 Sensor wire into the patient's bladder and removed the sheath, leaving the wire behind. Over the wire, I passed a 22-Burkinan three-way Hoover catheter into the patient's bladder and filled the balloon with 30 mL of sterile water. This catheter was then manually irrigated and a couple of more small prostate chips were removed in this Electronically Signed By: LINCOLN SMITH MD 01/09/23 1805 PATIENT NAME: ARNALDO STALEY OPERATIVE REPORT DATE OF : 45 REPORT #: [id number] PHYSICIAN: LINCOLN SMITH MD PCP: COLE PRADO MD REPORT IS CONFIDENTIAL AND NOT TO BE RELEASED WITHOUT AUTHORIZATION [facility] [address] [place], [place] [address] Signed fashion. The catheter was then connected to continuous bladder irrigation. A digital rectal examination was then performed. Please see above findings. The procedure was then terminated. The patient tolerated the procedure well without any complication. He will now be transferred to the Postanesthesia Care Unit in stable condition. DISPOSITION: I discussed the details of today's procedure with the patient's friend and answered all of her questions. He will be transferred to [facility] later this morning and his CBI will be slowly weaned to off, keeping his urine clear to light pink in color. His regular diet will be restarted and he will be given pain control as needed. The plan is for him to be discharged to home tomorrow morning with Hoover catheter to gravity drainage. He has a voiding trial scheduled for this at 10:00 am. He is going home with Ultram 50 mg one tablet p.o. q.6 hours p.r.n. pain, dispense #20, along with Levaquin 500 mg one tablet p.o. daily for a total of 7 days. MD LUKAS Munoz/JESSE /[id number] Copies: ~ Electronically Signed By: LINCOLN SMITH MD 01/09/23 1805 PATIENT NAME: ARNALDO STALEY OPERATIVE REPORT DATE OF : 45 REPORT #: [id number] PHYSICIAN: LINCOLN SMITH MD PCP: COLE PRADO MD REPORT IS CONFIDENTIAL AND NOT TO BE RELEASED WITHOUT AUTHORIZATION
--- NOTE | 2023-01-10 13:13 | NUR ---
PTS FAMILY CALLED WITH QUESTIONS REGARDING DISCHARGE MEDICATIONS. QUESTIONS ANSWERED. FAMILY STATES THEY WILL CALL DR. SMITH TO CONFIRM MEDICATIONS. NO ADDITIONAL REQUESTS OR COMPLAINTS.
--- NOTE | 2023-01-11 12:38 | PATH ---
[facility] [address] [place], [place] [address] Signed SPECIMEN(S): A PROSTATE CHIPS SPECIMEN SOURCE: A. PROSTATE CHIPS CLINICAL HISTORY: Pre: OAB, BPH with LUTS. Post: TURP FINAL PATHOLOGIC DIAGNOSIS: Prostate chips, TUR: - Benign prostatic glandular tissue with stromal and glandular hyperplasia. - Focal chronic stromal and glandular inflammation. - Urothelium with mild atypia, favor reactive. RUST:[facility] MICROSCOPIC EXAMINATION: Histologic sections of all submitted blocks are examined by light microscopy. These findings, together with the gross examination, support the pathologic diagnosis. Immunostains are performed with appropriate controls on block (A2) and show the following: - CK5: Focal basal staining in the areas of concern. - CK20: Negative for full-thickness urothelial staining in the area of concern. JVR:[facility] GROSS DESCRIPTION: The specimen, labeled and designated "Sarah Staley, " and designated on the requisition "prostate chips," is received in formalin is a 26 g, 9.8 x 8.5 x 2.4 cm aggregate of pink-allen to avendano rubbery soft tissue. Approximately 50% of the specimen is submitted in (A1-A11). FB (under the direct supervision of a pathologist) The Gross Description was prepared using a voice recognition system. The report was reviewed for accuracy; however, sound-alike word errors, addition and/or deletions may occur. If there is any question about this report, please contact Client Services. ADDITIONAL NOTES: Immunohistochemical and/or in situ hybridization studies were performed on this case with the appropriate positive controls that react as expected. This test was developed and its performance PATIENT NAME: ARNALDO STALEY PATHOLOGY DATE OF : 45 REPORT #: [id number] PHYSICIAN: APARNA PATHOLOGY PCP: COLE PRADO MD REPORT IS CONFIDENTIAL AND NOT TO BE RELEASED WITHOUT AUTHORIZATION [facility] [address], [place] [address] Signed characteristics determined by [facility]. It has not been cleared or approved by the U.S. Food and Drug Administration. The FDA has determined that such clearance or approval is not necessary. This test is used for clinical purposes. It should not be regarded as investigational or for research. [facility] is certified under the Clinical Laboratory Improvement Amendments of 1988 (CLIA) as qualified to perform high complexity clinical laboratory testing. This assay has not been validated for specimens that have been decalcified. PERFORMING LABORATORY: Technical component was performed by [facility], [address] [place] [id number] (CLIA# [id number]). Professional interpretation was performed by [facility], [address] [place] [id number] (CLIA#: [id number]). Diagnostician: Anmol Melton MD Pathologist Electronically Signed 01/11/2023 Copies: ~ PATIENT NAME: ARNALDO STALEY PATHOLOGY DATE OF : 45 REPORT #: [id number] PHYSICIAN: APARNA PALACIO PCP: COLE PRADO MD REPORT IS CONFIDENTIAL AND NOT TO BE RELEASED WITHOUT AUTHORIZATION
== END 2023-01-08 09:43 | disposition home or self-care (01) ==
LOC: DS 05:45 → MS 10:15 → DS 01-08 09:43
PROVIDERS: ATTEND Urology
PROC: 0VT08ZZ Resection of Prostate, Via Natural or Artificial Opening Endoscopic (ICD-10-PCS; principal; 2023-01-07 07:30)
DX: N40.1 Benign prostatic hyperplasia with lower urinary tract symptoms (principal); R33.8 Other retention of urine
CPT/HCPCS: 00914; 36415; 80048; 88305; 88341; 88342; C1769; J0690; J0696; J1100; J2001; J2405; J2704; J3010; J7121

== ENCOUNTER 2023-01-29 11:55 | Emergency (ER) | payer MEDICARE ==
[~2023-01-29] VITALS: Ht 170.2 cm; Wt 70.0 kg
--- OUTSIDE RECORDS SUMMARY | ~2023-01-29 | XMS | Continuity of Care Document ---
Demographics + + + | Address | [address] | | | [place] [address] | + + + | Preferred Language | Unknown | + + + | Marital Status | Never | + + + | Episcopal Affiliation | Unknown | + + + | Race | White | + + + | Ethnic Group | Not or | + + + Author + + + | Author | [facility] | + + + | Organization | [facility] | + + + | Address | [address] | | | [place] [address] | + + + | Phone | | + + + Care Team Providers + + + + | Care Child Care Nurse Name | Role | Phone | + [...] | 2022-11-01 00:00 | POTASSIUM CHLORIDE | [facility] | + + + + | 2023-01-08 00:00 | LEVOFLOXACIN | [facility] | + + + + | 2022-11-01 00:00 | AMLODIPINE BESYLATE | [facility] | + + + + | 2022-11-02 00:00 | AMLODIPINE BESYLATE | [facility] | + + + + | 2022-11-23 00:00 | AMLODIPINE BESYLATE | [facility] | + + + + | 2023-01-08 00:00 | AMLODIPINE BESYLATE | [facility] | + + + + | 2023-01-08 00:00 | Aspirin | [facility] | + + + + | 2023-01-08 00:00 | ATORVASTATIN CALCIUM | [facility] | + + + + | 2023-01-08 00:00 | TRAMADOL HCL | [facility] | + + + + | 2022-11-01 00:00 | ENALAPRIL MALEATE | [facility] | + + + + | 2022-11-02 00:00 | ENALAPRIL MALEATE | [facility] | + + + + | 2022-11-23 00:00 | ENALAPRIL MALEATE | [facility] | + + + + | 2023-01-08 00:00 | ENALAPRIL MALEATE | [facility] | + + + + | 2022-11-01 00:00 | TAMSULOSIN HCL | [facility] | + + + + | 2023-01-08 00:00 | TAMSULOSIN HCL | [facility] | + + + + Problems + + + + | date | description | facility | + + + + | 2016-10-27 00:00 | Palpitations | [facility] | + + + + | 2016-10-27 00:00 | Palpitations | [facility] | + + + + | 2016-10-27 00:00 | Palpitations | [facility] | + + + + | 2016-10-27 00:00 | Weakness | [facility] | + + + + | 2016-10-27 00:00 | Weakness | [facility] | + + + + | 2016-10-27 00:00 | Weakness | [facility] | + + + + | 2016-10-27 00:00 | Fatigue | [facility] | + + + + | 2016-10-27 00:00 | Fatigue | [facility] | + + + + | 2016-10-27 00:00 | Fatigue | [facility] | + + + + | 2018-10-05 00:00 | 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[facility] | | | thrombosis | | + + + + | 2018-10-05 00:00 | 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[facility] | | | thrombosis | | + + + + | 2018-10-05 00:00 | 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[facility] | | | thrombosis | | + [...] 2022-10-31 00:00 | Bladder outlet obstruction | [facility] | | | | | + + + + | 2022-10-31 00:00 | Bladder outlet obstruction | [facility] | | | | | + + + + | 2022-10-31 00:00 | Bladder outlet obstruction | [facility] | | | | | + [...] 2022-11-02 00:00 | Problem with Hoover | [facility] | | | catheter | | + + + + | 2022-11-02 00:00 | Problem with Hoover | [facility] | | | catheter | | + [...] + + | 2022-11-02 10:23 | OTHER CREASING AND CUTTING PRESS FEEDER (CURRENT) | [facility] | | [facility] | | + + + + | 2022-11-23 00:00 | Hematuria | [facility] | + + + + | 2022-11-23 00:00 | Hematuria | 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 | | + + + + | 2023-01-07 05:45 | BENIGN PROSTATIC | [facility] | | | HYPERPLASIA WITH LOWER | | + + + + | 2023-01-07 05:45 | OTHER RETENTION OF URINE | [facility] | + + + + | 2023-01-07 05:45 | RETENTION OF URINE, | [facility] | | | UNSPECIFIED | | + + + + | 2023-01-07 07:30 | BENIGN PROSTATIC | [facility] | | | HYPERPLASIA WITH LOWER | | + + + + | 2023-01-07 07:30 | RETENTION OF URINE, | [facility] | | | UNSPECIFIED | | + + + + Procedures + + + + | date | description | facility | + + + + | 2023-01-07 00:00 | Transurethral resection of | [facility] | | | prostate (TURP) | | + + + + | 2023-01-07 00:00 | Transurethral resection of | [facility] | | | prostate (TURP) | | + + + + Results/Labs +--------+--------+ +---------+--------+---------+ | test | date [...] 22 | + + + + + +--------+ + + | | 2022-11-01 | [facility] | 12.2 | (missing) | (missing) | | (unavailable | [facility]14[facility]07 [facility] | | | | + + + +--------+ + + + + | Result panel 23 | + + + + + +--------+ + + | | 2022-11-01 | [facility] | 34.6 | (missing) | (missing) | | (unavailable | [facility]14[facility]07 [facility] | | | | + + + +--------+ + + + + | Result panel 24 | + + + + + +--------+ + + | | 2022-11-01 | [facility] | 91.8 | (missing) | (missing) | | (unavailable | [facility]14:07 [facility] | | | | + + + +--------+ + + + + | Result panel 25 | + + + + + +--------+ + + | | 2022-11-01 | [facility] | 32.3 | (missing) | (missing) | | (unavailable | [facility]14:07 [facility] | | | | + + + +--------+ + + + + | Result panel 26 | + + + + + +--------+ [...] 29 | + + + + + +--------+ + + | | 2022-11-01 | [facility] | 68.5 | (missing) | (missing) | | (unavailable | 05[facility]14:07 [facility] | | | | + + + +--------+ + + + + | Result panel 30 | + + + + + +--------+ + + | | 2022-11-01 | [facility] | 15.8 | (missing) | (missing) | | (unavailable | [facility]14[facility]07 [facility] | | | | + + + +--------+ + + + + | Result panel 31 | + + + + + +-------+ + + | | 2022-11-01 | [facility] | 8.6 | (missing) | (missing) | | (unavailable | [facility]14[facility]07 [facility] | | | | + + + +-------+ + + + + | Result panel 32 | + + + + + +-------+ [...] 34 | + + + + + +------+---------+ + | | 2022-11-01 | [facility] | 99 | mg/dL | (missing) | | (unavailable | [facility]14:07 [facility] | | | | + + + +------+---------+ + + + | Result panel 35 | + + + + + +------+---------+ + | | 2022-11-01 | [facility] | 76 | mg/dL | (missing) | | (unavailable | [facility]14:07 [facility] | | | | + + + +------+---------+ + + + | Result panel 36 | + + + + + +--------+---------+ + | | 2022-11-01 | [facility] | 2.82 | mg/dL | (missing) | | (unavailable | [facility]14[facility]07 [facility] | | | | + + + +--------+---------+ + + + | Result panel 37 | + + + + + +------+ + + | | 2022-11-01 | [facility] | 22 | (missing) | (missing) | | (unavailable | [facility]14:07 [facility] | | | | + + + +------+ + + + + | Result panel 38 | + + + + + +---------+ + + | | 2022-11-01 | [facility] | 26.95 | (missing) | (missing) | | (unavailable | [facility]14:07 [facility] | | | | + + + +---------+ + + + + | Result panel 39 | + + + + + +-------+ + + | | 2022-11-01 | [facility] | 133 | (missing) | (missing) | | (unavailable | 05[facility]14:07 [facility] | | | | + + + +-------+ + + + + | Result panel 40 | + + + + + +-------+ + + | | 2022-11-01 | [facility] | 2.9 | (missing) | (missing) | | (unavailable | [facility]14:07 [facility] | | | | + + + +-------+ + + + + | Result panel 41 | + + + + + +------+ + + | | 2022-11-01 | [facility] | 99 | (missing) | (missing) | | (unavailable | 05[facility]14:07 [facility] | | | | + + + +------+ + + + + | Result panel 42 | + + + + + +------+ + + | | 2022-11-01 | [facility] | 25 | (missing) | (missing) | | (unavailable | [facility]14:07 [facility] | | | | + + + +------+ + + + + | Result panel 43 | + + + + + +--------+ + + | | 2022-11-01 | [facility] | 11.9 | (missing) | (missing) | | (unavailable | [facility]14[facility]07 [facility] | | | | + + + +--------+ + + + + | Result panel 44 | + + + + + +-------+---------+ + | | 2022-11-01 | [facility] | 8.0 | mg/dL | (missing) | | (unavailable | [facility]14:07 [facility] | | | | + + + +-------+---------+ + + + | Result panel 45 | + + + + + +-------+---------+ + | | 2022-11-01 | [facility] | 4.3 | mg/dL | (missing) | | (unavailable | [facility]14:07 [facility] | | | | + + + +-------+---------+ + + + | Result panel 46 | + + + + + +-------+---------+ + | | 2022-11-01 | [facility] | 2.4 | mg/dL | (missing) | | (unavailable | [facility]14:07 [facility] | | | | + + + +-------+---------+ + + + | Result panel 47 | + + + + + +-------+ + + | | 2022-11-01 | [facility] | 5.3 | (missing) | (missing) | | (unavailable | [facility]14[facility]07 [facility] | | | | + + + +-------+ + + + + | Result panel 48 | + + + + + +-------+ + + | | 2022-11-01 | [facility] | 2.7 | (missing) | (missing) | | (unavailable | [facility]14:07 [facility] | | | | + + + +-------+ + + + + | Result panel 49 | + + + + + +-------+ + + | | 2022-11-01 | [facility] | 2.6 | (missing) | (missing) | | (unavailable | [facility]14:07 [facility] | | | | + + + +-------+ + + + + | Result panel 50 | + + + + + +--------+ + + | | 2022-11-01 | [facility] | 1.04 | (missing) | (missing) | | (unavailable | 05[facility]14:07 | [facility] | | | | | ) | [...] 52 | + + + + + +------+ + + | | 2022-11-01 | [facility] | 15 | (missing) | (missing) | | (unavailable | [facility]14:07 [facility] | | | | + + + +------+ + + + + | Result panel 53 | + + + + + +------+ + + | | 2022-11-01 | [facility] | 16 | (missing) | (missing) | | (unavailable | [facility]14:07 [facility] | | | | + + + +------+ + + + + | Result panel 54 | + + + + + +------+ [...] 56 | + + + + + +--------+ + + | | 2022-11-01 | [facility] | 3.77 | (missing) | (missing) | | (unavailable | [facility]14:07 [facility] | | | | + + + +--------+ + + + + | Result panel 57 | + + + + + +--------+ + + | | 2022-11-01 | [facility] | 12.2 | (missing) | (missing) | | (unavailable | [facility]14:07 [facility] | | | | + + + +--------+ + + + + | Result panel 58 | + + + + + +--------+ [...] 66 | + + + + + +-------+ + + | | 2022-11-01 | [facility] | 8.6 | (missing) | (missing) | | (unavailable | [facility]14:07 [facility] | | | | + + + +-------+ + + + + | Result panel 67 | + + + + + +-------+ + + | | 2022-11-01 | [facility] | 6.5 | (missing) | (missing) | | (unavailable | 05[facility]14:07 [facility] | | | | + + + +-------+ + + + + | Result panel 68 | + + + + + +-------+ + + | | 2022-11-01 | [facility] | 0.6 | (missing) | (missing) | | (unavailable | [facility]14[facility]07 [facility] | | | | + + + +-------+ + + + + | Result panel 69 | + + + + + +------+---------+ + | | 2022-11-01 | [facility] | 99 | mg/dL | (missing) | | (unavailable | [facility]14:07 [facility] | | | | + + + +------+---------+ + + + | Result panel 70 | + + + + + +------+---------+ + | | 2022-11-01 | [facility] | 76 | mg/dL | (missing) | | (unavailable | 05[facility]14:07 [facility] | | | | + + + +------+---------+ + + + | Result panel 71 | + + + + + +--------+---------+ + | | 2022-11-01 | [facility] | 2.82 | mg/dL | (missing) | | (unavailable | [facility]14:07 [facility] | | | | + + + +--------+---------+ + + + | Result panel 72 | + + + + + +------+ + + | | 2022-11-01 | [facility] | 22 | (missing) | (missing) | | (unavailable | [facility]14:07 [facility] | | | | + + + +------+ + + + + | Result panel 73 | + + + + + +---------+ + + | | 2022-11-01 | [facility] | 26.95 | (missing) | (missing) | | (unavailable | 05[facility]14:07 [facility] | | | | + + + +---------+ + + + + | Result panel 74 | + + + + + +-------+ [...] 76 | + + + + + +------+ + + | | 2022-11-01 | [facility] | 99 | (missing) | (missing) | | (unavailable | 05[facility]14:07 [facility] | | | | + + + +------+ + + + + | Result panel 77 | + + + + + +------+ + + | | 2022-11-01 | [facility] | 25 | (missing) | (missing) | | (unavailable | 05[facility]14:07 [facility] | | | | + + + +------+ + + + + | Result panel 78 | + + + + + +--------+ + + | | 2022-11-01 | [facility] | 11.9 | (missing) | (missing) | | (unavailable | [facility]14:07 | [facility] | | | | + + + +--------+ + + + + | Result panel 79 | + + + + + +-------+---------+ + | | 2022-11-01 | [facility] | 8.0 | mg/dL | (missing) | | (unavailable | [facility]14:07 [facility] | | | | + + + +-------+---------+ + + + | Result panel 80 | + + + + + +-------+---------+ + | | 2022-11-01 | [facility] | 4.3 | mg/dL | (missing) | | (unavailable | [facility]14:07 [facility] | | | | + + + +-------+---------+ + + + | Result panel 81 | + + + + + +-------+---------+ + | | 2022-11-01 | [facility] | 2.4 | mg/dL | (missing) | | (unavailable | 05[facility]14:07 | [facility] | | | | + + + +-------+---------+ + + + | Result panel 82 | + + + + + +-------+ + + | | 2022-11-01 | [facility] | 5.3 | (missing) | (missing) | | (unavailable | [facility]14[facility] | | | | + + + +-------+ + + + + | Result panel 83 | + + + + + +-------+ [...] 85 | + + + + + +--------+ + + | | 2022-11-01 | [facility] | 1.04 | (missing) | (missing) | | (unavailable | [facility]14:07 [facility] | | | | + + + +--------+ + + + + | Result panel 86 | + + + + + +-------+ [...] 88 | + + + + + +------+ + + | | 2022-11-01 | [facility] | 16 | (missing) | (missing) | | (unavailable | [facility]14:07 [facility] | | | | + + + +------+ + + + + | Result panel 89 | + + + + + +------+ + + | | 2022-11-01 | [facility] | 68 | (missing) | (missing) | | (unavailable | [facility]14:07 [facility] | | | | + + + +------+ + + + + | Result panel 90 | + + + + + +-------+ + + | | 2022-11-01 | [facility] | 6.9 | (missing) | (missing) | | (unavailable | [facility]14:07 [facility] | | | | + + + +-------+ + + + + | Result panel 91 | + + + + + +--------+ + + | | 2022-11-01 | [facility] | 3.77 | (missing) | (missing) | | (unavailable | 05[facility]14:07 [facility] | | | | + + + +--------+ + + + + | Result panel 92 | + + + + + +--------+ + + | | 2022-11-01 | [facility] | 12.2 | (missing) | (missing) | | (unavailable | [facility]14:07 [facility] | | | | + + + +--------+ + + + + | Result panel 93 | + + + + + +--------+ + + | | 2022-11-01 | [facility] | 34.6 | (missing) | (missing) | | (unavailable | 05[facility]14:07 [facility] | | | | + + + +--------+ + + + + | Result panel 94 | + + + + + +--------+ + + | | 2022-11-01 | [facility] | 91.8 | (missing) | (missing) | | (unavailable | 05[facility]14:07 [facility] | | | | + + + +--------+ + + + + | Result panel 95 | + + + + + +--------+ + + | | 2022-11-01 | [facility] | 32.3 | (missing) | (missing) | | (unavailable | 05[facility]14:07 [facility] | | | | + + + +--------+ + + + + | Result panel 96 | + + + + + +--------+ + + | | 2022-11-01 | [facility] | 35.2 | (missing) | (missing) | | (unavailable | 05[facility]14:07 [facility] | | | | + + + +--------+ + + + + | Result panel 97 | + + + + + +--------+ [...] 99 | + + + + + +--------+ + + | | 2022-11-01 | [facility] | 68.5 | (missing) | (missing) | | (unavailable | 05[facility]14:07 [facility] | | | | + + + +--------+ + + + + | Result panel 100 | + + + + + +--------+ + + | | 2022-11-01 | [facility] | 15.8 | (missing) | (missing) | | (unavailable | 05[facility]14:07 [facility] | | | | + + + +--------+ + + + + | Result panel 101 | + + + + + +-------+ + + | | 2022-11-01 | [facility] | 8.6 | (missing) | (missing) | | (unavailable | 05[facility]14:07 [facility] | | | | + + + +-------+ + + + + | Result panel 102 | + + + + + +-------+ [...] 104 | + + + + + +------+---------+ + | | 2022-11-01 | [facility] | 99 | mg/dL | (missing) | | (unavailable | 05[facility]14:07 [facility] | | | | + + + +------+---------+ + + + | Result panel 105 | + + + + + +------+---------+ + | | 2022-11-01 | [facility] | 76 | mg/dL | (missing) | | (unavailable | 05[facility]14:07 [facility] | | | | + + + +------+---------+ + + + | Result panel 106 | + + + + + +--------+---------+ + | | 2022-11-01 | [facility] | 2.82 | mg/dL | (missing) | | (unavailable | 05[facility]14:07 [facility] | | | | + + + +--------+---------+ + + + | Result panel 107 | + + + + + +------+ + + | | 2022-11-01 | [facility] | 22 | (missing) | (missing) | | (unavailable | 05[facility]14:07 [facility] | | | | + + + +------+ + + + + | Result panel 108 | + + + + + +---------+ + + | | 2022-11-01 | [facility] | 26.95 | (missing) | (missing) | | (unavailable | 05[facility]14:07 [facility] | | | | + + + +---------+ + + + + | Result panel 109 | + + + + + +-------+ + + | | 2022-11-01 | [facility] | 133 | (missing) | (missing) | | (unavailable | 05[facility]14:07 [facility] | | | | + + + +-------+ + + + + | Result panel 110 | + + + + + +-------+ + + | | 2022-11-01 | [facility] | 2.9 | (missing) | (missing) | | (unavailable | 05[facility]14:07 [facility] | | | | + + + +-------+ + + + + | Result panel 111 | + + + + + +------+ + + | | 2022-11-01 | [facility] | 99 | (missing) | (missing) | | (unavailable | 05[facility]14:07 [facility] | | | | + + + +------+ + + + + | Result panel 112 | + + + + + +------+ + + | | 2022-11-01 | [facility] | 25 | (missing) | (missing) | | (unavailable | 05[facility]14:07 [facility] | | | | + + + +------+ + + + + | Result panel 113 | + + + + + +--------+ + + | | 2022-11-01 | [facility] | 11.9 | (missing) | (missing) | | (unavailable | 05[facility]14:07 [facility] | | | | + + + +--------+ + + + + | Result panel 114 | + + + + + +-------+---------+ + | | 2022-11-01 | [facility] | 8.0 | mg/dL | (missing) | | (unavailable | 05[facility]14:07 [facility] | | | | + + + +-------+---------+ + + + | Result panel 115 | + + + + + +-------+---------+ + | | 2022-11-01 | [facility] | 4.3 | mg/dL | (missing) | | (unavailable | 05[facility]14:07 [facility] | | | | + + + +-------+---------+ + + + | Result panel 116 | + + + + + +-------+---------+ + | | 2022-11-01 | [facility] | 2.4 | mg/dL | (missing) | | (unavailable | [facility]14:07 [facility] | | | | + + + +-------+---------+ + + + | Result panel 117 | + + + + + +-------+ + + | | 2022-11-01 | [facility] | 5.3 | (missing) | (missing) | | (unavailable | [facility]14[facility]07 [facility] | | | | + + + +-------+ + + + + | Result panel 118 | + + + + + +-------+ + + | | 2022-11-01 | [facility] | 2.7 | (missing) | (missing) | | (unavailable | [facility]14:07 [facility] | | | | + + + +-------+ + + + + | Result panel 119 | + + + + + +-------+ + + | | 2022-11-01 | [facility] | 2.6 | (missing) | (missing) | | (unavailable | 05[facility]14:07 [facility] | | | | + + + +-------+ + + + + | Result panel 120 | + + + + + +--------+ + + | | 2022-11-01 | [facility] | 1.04 | (missing) | (missing) | | (unavailable | 05[facility]14:07 [facility] | | | | + + + +--------+ + + + + | Result panel 121 | + + + + + +-------+ + + | | 2022-11-01 | [facility] | 0.9 | (missing) | (missing) | | (unavailable | 05[facility]14:07 [facility] Hospital | | | | + + + +-------+ + + + + | Result panel 122 | + + + + + +------+ + + | | 2022-11-01 | [facility] | 15 | (missing) | (missing) | | (unavailable | 05[facility]14:07 | [facility] Hospital | | | | + + + +------+ + + + + | Result panel 123 | + + + + + +------+ + + | | 2022-11-01 | [facility] | 16 | (missing) | (missing) | | (unavailable | 05[facility]14:07 [facility] | | | | + + + +------+ + + + + | Result panel 124 | + + + + + +------+ + + | | 2022-11-01 | [facility] | 68 | (missing) | (missing) | | (unavailable | 05[facility]14:07 [facility] Hospital | | | | + + + +------+ + + + + | Result panel 125 | + + + + + + + + + | | 2022-11-02 | [facility] | YELLOW | (missing) | (missing) | | (unavailable | 11:58:07 | [facility] Hospital | | | | + + + + + + + + + | Result panel 126 | + + + + + +---------+ + + | | 2022-11-02 | [facility] | CLEAR | (missing) | (missing) | | (unavailable | 11:58:07 | [facility] | Hospital | | | | + + + +---------+ + + + + | Result panel 127 | + + + + + + + + + | | 2022-11-02 | [facility] | NEGATIVE | (missing) | (missing) | | (unavailable | 11[facility]58:07 [facility] Hospital | | | | + + + + + + + + + | Result panel 128 | + + + + + + + + + | | 2022-11-02 | [facility] | NEGATIVE | (missing) | (missing) | | (unavailable | 11[facility]58:07 | [facility] Hospital | | | | + + + + + + + + + | Result panel 129 | + + + + + + + + + | | 2022-11-02 | [facility] | NEGATIVE | (missing) | (missing) | | (unavailable | 11:58:07 | [facility] Hospital | | | | + + + + + + + + + | Result panel 130 | + + + + + +---------+ + + | | 2022-11-02 | [facility] | 1.025 | (missing) | (missing) | | (unavailable | 11:58:07 | Sal | | | | | ) | | Hospital | | | | + + + +---------+ + + + + | Result panel 131 | + + + + + +---------+ + + | | 2022-11-02 | [facility] | LARGE | (missing) | (missing) | | (unavailable | 11:58:07 | Sal | | | | | ) | | Hospital | | | | + + + +---------+ + + + + | Result panel 132 | + + + + + +-------+ + + | | 2022-11-02 | [facility] | 5.5 | (missing) | (missing) | | (unavailable | 11:58:07 | Sal | | | | | ) | | Hospital | | | | + + + +-------+ + + + + | Result panel 133 | + + + + + +-------+ + + | | 2022-11-02 | [facility] | 100 | (missing) | (missing) | | (unavailable | 11:58:07 | Sal | | | | | ) | | Hospital | | | | + + + +-------+ + + + + | Result panel 134 | + + + + + + + + + | | 2022-11-02 | [facility] | NORMAL | (missing) | (missing) | | (unavailable | 11:58:07 | Sal | | | | | ) | | Hospital | | | | + + + + + + + + + | Result panel 135 | + + + + + + + + + | | 2022-11-02 | [facility] | NEGATIVE | (missing) | (missing) | | (unavailable | 11:58:07 | Sal | | | | | ) | | Hospital | | | | + + + + + + + + + | Result panel 136 | + + + + + +---------+ + + | | 2022-11-02 | [facility] | TRACE | (missing) | (missing) | | (unavailable | 11:58:07 | Sal | | | | | ) | | Hospital | | | | + + + +---------+ + + + + | Result panel 137 | + + + + + +---------+ + + | | 2022-11-02 | [facility] | 21-40 | (missing) | (missing) | | (unavailable | 11:58:07 | Sal | | | | | ) | | Hospital | | | | + + + +---------+ + + + + | Result panel 138 | + + + + + +-------+ + + | | 2022-11-02 | [facility] | 2-3 | (missing) | (missing) | | (unavailable | 11:58:07 | Sal | | | | | ) | | Hospital | | | | + + + +-------+ + + + + | Result panel 139 | + + + + + + + + + | | 2022-11-02 | [facility] | SQUAMOUS 1+ | (missing) | (missing) | | (unavailable | 11:58:07 | Sal | | | | | ) | | Hospital | | | | + + + + + + + + + | Result panel 140 | + + + + + + + + + | | 2022-11-02 | [facility] | NONE SEEN | (missing) | (missing) | | (unavailable | 11:58:07 | Sal | | | | | ) | | Hospital | | | | + + + + + + + + + | Result panel 141 | + + + + + +--------+ + + | | 2022-11-02 | [facility] | RARE | (missing) | (missing) | | (unavailable | 11:58:07 | Sal | | | | | ) | | Hospital | | | | + + + +--------+ + + + + | Result panel 142 | + + + + + + + + + | | 2022-11-02 | [facility] | NONE SEEN | (missing) | (missing) | | (unavailable | 11:58:07 | Sal | | | | | ) | | Hospital | | | | + + + + + + + + + | Result panel 143 | + + + + + +------+ + + | | 2022-11-02 | [facility] | No | (missing) | (missing) | | (unavailable | 11:58:07 | Sal | | | | | ) | | Hospital | | | | + + + +------+ + + + + | Result panel 144 | + + + + + + + + + | | 2022-11-02 | [facility] | CLEAN CATCH | (missing) | (missing) | | (unavailable | 11:58:07 | [facility] Hospital | | | | + + + + + + + + + | Result panel 145 | + + + + + +------+ + + | | 2022-11-23 | [facility] | No | (missing) | (missing) | | (unavailable | 11:10:07 | [facility] ) | | Hospital | | | | + + + +------+ + + + + | Result panel 146 | + + + + + + + + + | | 2022-11-23 | [facility] | CLEAN CATCH | (missing) | (missing) | | (unavailable | 11:10:07 | Sal | [facility] ) | | Hospital | | | | + + + + + + + + + | Result panel 147 | + + + + + +-------+ + + | | 2022-11-23 | [facility] | RED | (missing) | (missing) | | (unavailable | 11:10:07 | [facility] ) | | Hospital | | | | + + + +-------+ + + + + | Result panel 148 | + + + + + + + + + | | 2022-11-23 | [facility] | CLOUDY | (missing) | (missing) | | (unavailable | 11:10:07 | Sal | [facility] | ) | | Hospital | | | | + + + + + + + + + | Result panel 149 | + + + + + + + + + | | 2022-11-23 | [facility] | NEGATIVE | (missing) | (missing) | | (unavailable | 11:10:07 | [facility] | [facility] ) | | Hospital | | | | + + + + + + + + + | Result panel 150 | + + + + + + + + + | | 2022-11-23 | [facility] | NEGATIVE | (missing) | (missing) | | (unavailable | 11:10:07 | [facility] ) | | Hospital | | | | + + + + + + + + + | Result panel 151 | + + + + + +---------+ + + | | 2022-11-23 | [facility] | TRACE | (missing) | (missing) | | (unavailable | 11:10:07 | Sal | [facility] | | ) | | Hospital | | | | + + + +---------+ + + + + | Result panel 152 | + + + + + + + + + | | 2022-11-23 | [facility] | >=1.030 | (missing) | (missing) | | (unavailable | 11:10:07 | Sal [facility] ) | | Hospital | | | | + + + + + + + + + | Result panel 153 | + + + + + +---------+ + + | | 2022-11-23 | [facility] | LARGE | (missing) | (missing) | | (unavailable | 11:10:07 | Sal | [facility] ) | | Hospital | | | | + + + +---------+ + + + + | Result panel 154 | + + + + + +-------+ + + | | 2022-11-23 | [facility] | 6.5 | (missing) | (missing) | | (unavailable | 11:10:07 | [facility] | [facility] ) | | Hospital | | | | + + + +-------+ + + + + | Result panel 155 | + + + + + +---------+ + + | | 2022-11-23 | [facility] | >=300 | (missing) | (missing) | | (unavailable | 11:10:07 | Sal | | | | | ) | | Hospital | | | | + + + +---------+ + + + + | Result panel 156 | + + + + + +-------+ + + | | 2022-11-23 | [facility] | 1.0 | (missing) | (missing) | | (unavailable | 11:10:07 | Sal | [facility] ) | | Hospital | | | | + + + +-------+ + + + + | Result panel 157 | + + + + + + + + + | | 2022-11-23 | [facility] | NEGATIVE | (missing) | (missing) | | (unavailable | 11:10:07 | Sal | [facility] ) | | Hospital | | | | + + + + + + + + + | Result panel 158 | + + + + + +---------+ + + | | 2022-11-23 | [facility] | TRACE | (missing) | (missing) | | (unavailable | 11:10:07 | Sal | [facility] | | ) | | Hospital | | | | + + + +---------+ + + + + | Result panel 159 | + + + + + +-------+ + + | | 2022-11-23 | [facility] | 2-3 | (missing) | (missing) | | (unavailable | 11:10:07 | Sal | [facility] | ) | | Hospital | | | | + + + +-------+ + + + + | Result panel 160 | + + + + + +-------+ + + | | 2022-11-23 | [facility] | >50 | (missing) | (missing) | | (unavailable | 11:10:07 | [facility] ) | | Hospital | | | | + + + +-------+ + + + + | Result panel 161 | + + + + + +-----+ + + | | 2022-11-23 | [facility] | 0 | (missing) | (missing) | | (unavailable | 11:10:07 | [facility] ) | | Hospital | | | | + + + +-----+ + + + + | Result panel 162 | + + + + + + + + + | | 2022-11-23 | [facility] | NONE SEEN | (missing) | (missing) | | (unavailable | 11:10:07 | [facility] | | Hospital | | | | + + + + + + + + + | Result panel 163 | + + + + + +--------+ + + | | 2022-11-23 | [facility] | RARE | (missing) | (missing) | | (unavailable | 11:10:07 | [facility] ) | | Hospital | | | | + + + +--------+ + + + + | Result panel 164 | + + + + + + + + + | | 2022-11-23 | [facility] | NONE SEEN | (missing) | (missing) | | (unavailable | 11:10:07 | [facility] ) | | Hospital | | | | + + + + + + + + + | Result panel 165 | + + + + + +-------+ + + | | 2023-01-03 | [facility] | 6.9 | (missing) | (missing) | | (unavailable | 14:10:07 | Sal | [facility] | | ) | | Hospital | | | | + + + +-------+ + + + + | Result panel 166 | + + + + + +--------+ + + | | 2023-01-03 | [facility] | 4.64 | (missing) | (missing) | | (unavailable | 14:10:07 | [facility] | [facility] | | ) | | Hospital | | | | + + + +--------+ + + + + | Result panel 167 | + + + + + +--------+ + + | | 2023-01-03 | [facility] | 14.5 | (missing) | (missing) | | (unavailable | 14:10:07 | [facility] ) | | Hospital | | | | + + + +--------+ + + + + | Result panel 168 | + + + + + +--------+ + + | | 2023-01-03 | [facility] | 42.6 | (missing) | (missing) | | (unavailable | 14:10:07 | [facility] ) | | Hospital | | | | + + + +--------+ + + + + | Result panel 169 | + + + + + +--------+ + + | | 2023-01-03 | [facility] | 91.9 | (missing) | (missing) | | (unavailable | 14:10:07 | [facility] ) | | Hospital | | | | + + + +--------+ + + + + | Result panel 170 | + + + + + +--------+ + + | | 2023-01-03 | [facility] | 31.2 | (missing) | (missing) | | (unavailable | 14:10:07 | [facility] ) | | Hospital | | | | + + + +--------+ + + + + | Result panel 171 | + + + + + +--------+ + + | | 2023-01-03 | [facility] | 34.0 | (missing) | (missing) | | (unavailable | 14:10:07 | [facility] ) | | Hospital | | | | + + + +--------+ + + + + | Result panel 172 | + + + + + +--------+ + + | | 2023-01-03 | [facility] | 14.2 | (missing) | (missing) | | (unavailable | 14:10:07 | Sal | [facility] | | ) | | Hospital | | | | + + + +--------+ + + + + | Result panel 173 | + + + + + +-------+ + + | | 2023-01-03 | [facility] | 218 | (missing) | (missing) | | (unavailable | 14:10:07 | Sal | | [facility] | ) | | Hospital | | | | + + + +-------+ + + + + | Result panel 174 | + + + + + +--------+ + + | | 2023-01-03 | [facility] | 62.0 | (missing) | (missing) | | (unavailable | 14:10:07 | [facility] | [facility] | ) | | Hospital | | | | + + + +--------+ + + + + | Result panel 175 | + + + + + +--------+ + + | | 2023-01-03 | [facility] | 26.9 | (missing) | (missing) | | (unavailable | 14:10:07 | [facility] | [facility] | | ) | | Hospital | | | | + + + +--------+ + + + + | Result panel 176 | + + + + + +-------+ + + | | 2023-01-03 | [facility] | 6.1 | (missing) | (missing) | | (unavailable | 14:10:07 | Sal | | [facility] | ) | | Hospital | | | | + + + +-------+ + + + + | Result panel 177 | + + + + + +-------+ + + | | 2023-01-03 | [facility] | 4.0 | (missing) | (missing) | | (unavailable | 14:10:07 | Sal | [facility] | | ) | | Hospital | | | | + + + +-------+ + + + + | Result panel 178 | + + + + + +-------+ + + | | 2023-01-03 | [facility] | 1.0 | (missing) | (missing) | | (unavailable | 14:10:07 | Sal | [facility] | | | ) | | Hospital | | | | + + + +-------+ + + + + | Result panel 179 | + + + + + + + + + | | 2023-01-03 | [facility] | YELLOW | (missing) | (missing) | | (unavailable | 14:14:07 | Sal | | | | | ) | | Hospital | | | | + + + + + + + + + | Result panel 180 | + + + + + + + + + | | 2023-01-03 | [facility] | SL CLOUDY | (missing) | (missing) | | (unavailable | 14:14:07 | Sal | | | | | ) | | Hospital | | | | + + + + + + + + + | Result panel 181 | + + + + + + + + + | | 2023-01-03 | [facility] | NEGATIVE | (missing) | (missing) | | (unavailable | 14:14:07 | Sal | | | | | ) | | Hospital | | | | + + + + + + + + + | Result panel 182 | + + + + + + + + + | | 2023-01-03 | [facility] | NEGATIVE | (missing) | (missing) | | (unavailable | 14::07 | Sal | | | | | ) | | Hospital | | | | + + + + + + + + + | Result panel 183 | + + + + + + + + + | | 2023-01-03 | [facility] | NEGATIVE | (missing) | (missing) | | (unavailable | 14::07 | Sal | | | | | ) | | Hospital | | | | + + + + + + + + + | Result panel 184 | + + + + + +---------+ + + | | 2023-01-03 | [facility] | 1.020 | (missing) | (missing) | | (unavailable | 14::07 | Sal | | | | | ) | | Hospital | | | | + + + +---------+ + + + + | Result panel 185 | + + + + + +---------+ + + | | 2023-01-03 | [facility] | LARGE | (missing) | (missing) | | (unavailable | 14::07 | Sal | | | | | ) | | Hospital | | | | + + + +---------+ + + + + | Result panel 186 | + + + + + +-------+ + + | | 2023-01-03 | [facility] | 6.5 | (missing) | (missing) | | (unavailable | 14:14:07 | Sal | | | | | ) | | Hospital | | | | + + + +-------+ + + + + | Result panel 187 | + + + + + +-------+ + + | | 2023-01-03 | [facility] | 100 | (missing) | (missing) | | (unavailable | 14:14:07 | Sal | | | | | ) | | Hospital | | | | + + + +-------+ + + + + | Result panel 188 | + + + + + + + + + | | 2023-01-03 | [facility] | NORMAL | (missing) | (missing) | | (unavailable | 14:14:07 | Sal | | | | | ) | | Hospital | | | | + + + + + + + + + | Result panel 189 | + + + + + + + + + | | 2023-01-03 | [facility] | NEGATIVE | (missing) | (missing) | | (unavailable | 14:14:07 | Sal | | | | | ) | | Hospital | | | | + + + + + + + + + | Result panel 190 | + + + + + + + + + | | 2023-01-03 | [facility] | MODERATE | (missing) | (missing) | | (unavailable | 14:14:07 | Sal | | | | | ) | | Hospital | | | | + + + + + + + + + | Result panel 191 | + + + + + +--------+ + + | | 2023-01-03 | [facility] | 7-11 | (missing) | (missing) | | (unavailable | 14:14:07 | Sal | | | | | ) | | Hospital | | | | + + + +--------+ + + + + | Result panel 192 | + + + + + +---------+ + + | | 2023-01-03 | [facility] | 12-20 | (missing) | (missing) | | (unavailable | 14:14:07 | Sal | | | | | ) | | Hospital | | | | + + + +---------+ + + + + | Result panel 193 | + + + + + + + + + | | 2023-01-03 | [facility] | NONE SEEN | (missing) | (missing) | | (unavailable | 14:14:07 | Sal | | | | | ) | | Hospital | | | | + + + + + + + + + | Result panel 194 | + + + + + + + + + | | 2023-01-03 | [facility] | NONE SEEN | (missing) | (missing) | | (unavailable | 14:: | Sal | | | | | ) | | Hospital | | | | + + + + + + + + + | Result panel 195 | + + + + + +------+ + + | | 2023-01-03 | [facility] | 1+ | (missing) | (missing) | | (unavailable | 14: | Sal | | | | | ) | | Hospital | | | | + + + +------+ + + + + | Result panel 196 | + + + + + + + + + | | 2023-01-03 | [facility] | NONE SEEN | (missing) | (missing) | | (unavailable | 14:14:07 | Sal | | | | | ) | | Hospital | | | | + + + + + + + + + | Result panel 197 | + + + + + +-------+ + + | | 2023-01-03 | [facility] | Yes | (missing) | (missing) | | (unavailable | 14:14:07 | Sal | | | | | ) | | Hospital | | | | + + + +-------+ + + + + | Result panel 198 | + + + + + + + + + | | 2023-01-03 | [facility] | CLEAN CATCH | (missing) | (missing) | | (unavailable | 14:14:07 | Sal | | | | | ) | | Hospital | | | | + + + + + + + + + | Result panel 199 | + + + + + + + + + | | 2023-01-03 | [facility] | | (missing) | (missing) | | (unavailable | 14:14:07 | Sal | ENTEROCOCCUS | | | | ) | | Hospital | FAECALIS | | | + + + + + + + + + | Result panel 200 | + + + + + +-------+---------+ + | | 2023-01-08 | [facility] | 141 | mg/dL | (missing) | | (unavailable | 05:25:07 | Sal | | | | | ) | | Hospital | | | | + + + +-------+---------+ + + + | Result panel 201 | + + + + + +--------+ + + | | 2023-01-08 | [facility] | 10.8 | (missing) | (missing) | | (unavailable | 05:25:07 | Sal | | | | | ) | | Hospital | | | | + + + +--------+ + + + + | Result panel 202 | + + + + + +-------+---------+ + | | 2023-01-08 | [facility] | 8.8 | mg/dL | (missing) | | (unavailable | 05:25:07 | Sal | | | | | ) | | Hospital | | | | + + + +-------+---------+ + + + | Result panel 203 | + + + + + +------+---------+ + | | 2023-01-08 | [facility] | 13 | mg/dL | (missing) | | (unavailable | 05:25:07 | Sal | | | | | ) | | Hospital | | | | + + + +------+---------+ + + + | Result panel 204 | + + + + + +--------+---------+ + | | 2023-01-08 | [facility] | 0.94 | mg/dL | (missing) | | (unavailable | 05:25:07 | Sal | | | | | ) | | Hospital | | | | + + + +--------+---------+ + + + | Result panel 205 | + + + + + +------+ + + | | 2023-01-08 | [facility] | 83 | (missing) | (missing) | | (unavailable | 05:25:07 | Sal | | | | | ) | | Hospital | | | | + + + +------+ + + + + | Result panel 206 | + + + + + +---------+ + + | | 2023-01-08 | [facility] | 13.82 | (missing) | (missing) | | (unavailable | 05:25:07 | Sal | | | | | ) | | Hospital | | | | + + + +---------+ + + + + | Result panel 207 | + + + + + +-------+ + + | | 2023-01-08 | [facility] | 139 | (missing) | (missing) | | (unavailable | 05:25:07 | Sal | | | | | ) | | Hospital | | | | + + + +-------+ + + + + | Result panel 208 | + + + + + +-------+ + + | | 2023-01-08 | [facility] | 3.8 | (missing) | (missing) | | (unavailable | 05:25:07 | Sal | | | | | ) | | Hospital | | | | + + + +-------+ + + + + | Result panel 209 | + + + + + +-------+ + + | | 2023-01-08 | [facility] | 103 | (missing) | (missing) | | (unavailable | 05:25:07 | Sal | | | | | ) | | Hospital | | | | + + + +-------+ + + + + | Result panel 210 | + + + + + +------+ + + | | 2023-01-08 | [facility] | 29 | (missing) | (missing) | | (unavailable | 05:25:07 | Sal | | | | | ) | | Hospital | | | | + + + +------+ + + Social History No information. Vital [...] 165.13 | lb | + + + +---------+ | 2022-11-23 00:00 | BMI | 25.2 | kg/m2 | + + + +---------+ | 2022-11-23 00:00 | BP_diastolic | 76 | mmHg | + + + +---------+ | 2022-11-23 00:00 | BP_systolic | 133 | mmHg | + + + +---------+ | 2022-11-23 00:00 | heart_rate | 55 | /min | + + + +---------+ | 2022-11-23 00:00 | height_metric | 170.18 | cm | + + + +---------+ | 2022-11-23 00:00 | height_standard | 67 | in | + + + +---------+ | 2022-11-23 00:00 | o2_saturation | 98 | % | + + + +---------+ | 2022-11-23 00:00 | respiration_rate | 16 | /min | + + + +---------+ | 2022-11-23 00:00 | temperature_metric | 36.78 | C | | | | | | + + + +---------+ | 2022-11-23 00:00 | | 98.2 | F | | | temperature_standar | | | | | d | | | + + + +---------+ | 2022-11-23 00:00 | weight_metric | 73.1 | kg | + + + +---------+ | 2022-11-23 00:00 | weight_standard | 161.16 | lb | + + + +---------+ | 2023-01-03 00:00 | BMI | 25.9 | kg/m2 | + + + +---------+ | 2023-01-03 00:00 | height_metric | 170.18 | cm | + + + +---------+ | 2023-01-03 00:00 | height_standard | 67 | in | + + + +---------+ | 2023-01-03 00:00 | weight_metric | 75 | kg | + + + +---------+ | 2023-01-03 00:00 | weight_standard | 165.35 | lb | + + + +---------+ | 2023-01-08 00:00 | BP_diastolic | 70 | mmHg | + + + +---------+ | 2023-01-08 00:00 | BP_systolic | 147 | mmHg | + + + +---------+ | 2023-01-08 00:00 | heart_rate | 66 | /min | + + + +---------+ | 2023-01-08 00:00 | o2_saturation | 95 | % | + + + +---------+ | 2023-01-08 00:00 | respiration_rate | 16 | /min | + + + +---------+ | 2023-01-08 00:00 | temperature_metric | 36.56 | C | | | | | | + + + +---------+ | 2023-01-08 00:00 | | 97.8 | F | | | temperature_standar | | | | | d | | | + + + +---------+"
--- OUTSIDE RECORDS SUMMARY | ~2023-01-29 | XMS | Continuity of Care Document ---
Demographics + + + | Address | [address] | | | [place] [address] | + + + | Preferred Language | Unknown | + + + | Marital Status | Never | + + + | Quaker Affiliation | Unknown | + + + | Race | White | + + + | Ethnic Group | Not or | + + + Author + + + | Author | [facility] | + + + | Organization | [facility] | + + + | Address | [address] | | | [place] [address] | + + + | Phone | | + + + Care Team Providers + + + + | Care Breast Buffer Name | Role | Phone | + [...] | 2022-11-01 00:00 | POTASSIUM CHLORIDE | [facility] | + + + + | 2023-01-08 00:00 | LEVOFLOXACIN | [facility] | + + + + | 2022-11-01 00:00 | AMLODIPINE BESYLATE | [facility] | + + + + | 2022-11-02 00:00 | AMLODIPINE BESYLATE | [facility] | + + + + | 2022-11-23 00:00 | AMLODIPINE BESYLATE | [facility] | + + + + | 2023-01-08 00:00 | AMLODIPINE BESYLATE | [facility] | + + + + | 2023-01-08 00:00 | Aspirin | [facility] | + + + + | 2023-01-08 00:00 | ATORVASTATIN CALCIUM | [facility] | + + + + | 2023-01-08 00:00 | TRAMADOL HCL | [facility] | + + + + | 2022-11-01 00:00 | ENALAPRIL MALEATE | [facility] | + + + + | 2022-11-02 00:00 | ENALAPRIL MALEATE | [facility] | + + + + | 2022-11-23 00:00 | ENALAPRIL MALEATE | [facility] | + + + + | 2023-01-08 00:00 | ENALAPRIL MALEATE | [facility] | + + + + | 2022-11-01 00:00 | TAMSULOSIN HCL | [facility] | + + + + | 2023-01-08 00:00 | TAMSULOSIN HCL | [facility] | + + + + Problems + + + + | date | description | facility | + + + + | 2016-10-27 00:00 | Palpitations | [facility] | + + + + | 2016-10-27 00:00 | Palpitations | [facility] | + + + + | 2016-10-27 00:00 | Palpitations | [facility] | + + + + | 2016-10-27 00:00 | Weakness | [facility] | + + + + | 2016-10-27 00:00 | Weakness | [facility] | + + + + | 2016-10-27 00:00 | Weakness | [facility] | + + + + | 2016-10-27 00:00 | Fatigue | [facility] | + + + + | 2016-10-27 00:00 | Fatigue | [facility] | + + + + | 2016-10-27 00:00 | Fatigue | 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 | | | | | + + + + | 2022-10-31 00:00 | Bladder outlet obstruction | [facility] | | | | | + + + + | 2022-10-31 00:00 | Bladder outlet obstruction | [facility] | | | | | + + [...] 2022-11-02 00:00 | Problem with Hoover | [facility] | | | catheter | | + + + + | 2022-11-02 00:00 | Problem with Hoover | 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 | | | prostate (TURP) | | + + + + | 2023-01-07 00:00 | Transurethral resection of | [facility] | | | prostate (TURP) | | [...] (missing) | | (unavailable | 14:10:07 | [facility] | | | | | [...]
[~2023-01-29 11:55] MED LIST changes: +LEVOFLOXACIN500 MG PO; +TRAMADOL HCL50 MG PO
[2023-01-29 13:45] VITALS: BP 130/90
== END 2023-01-29 13:46 | disposition home or self-care (01) ==
LOC: ED 11:55
DX: Z00.8 Encounter for other general examination (principal); I10 Essential (primary) hypertension; F17.200 Nicotine dependence, unspecified, uncomplicated; Z79.899 Other long term (current) drug therapy; Z79.82 Long term (current) use of aspirin
CPT/HCPCS: 51702; 99282-25